=== PATIENT | female | born 1960 | race Caucasian/White ===

== ENCOUNTER 2016-05-23 18:05 | Emergency (ER) | payer MEDICARE | END 2016-05-23 20:56 | disposition home or self-care (01) | DX: M79.662 Pain in left lower leg (principal); M79.661 Pain in right lower leg; I10 Essential (primary) hypertension; E11.9 Type 2 diabetes mellitus without complications; Z79.84 Long term (current) use of oral hypoglycemic drugs; E03.9 Hypothyroidism, unspecified; Z79.82 Long term (current) use of aspirin ==

== ENCOUNTER 2018-03-02 13:56 | Emergency (ER) | payer MEDICARE ==
[2018-03-02 15:28] LABS: BASOPHILS # (AUTO) 0.1 10^3/uL (0.0-0.1); BASOPHILS % (AUTO) 1.4 %; EOSINOPHILS # (AUTO) 0.3 10^3/uL (0.0-0.7); EOSINOPHILS % (AUTO) 4.2 %; HGB - HEMOGLOBIN 14.8 g/dL (12.0-16.0); LYMPHOCYTES # (AUTO) 3.2 10^3/uL (1.5-3.5); LYMPHOCYTES % (AUTO) 41.1 %; MEAN CORPUSCULAR HEMOGLOBIN 31.2 pg (27.0-31.0); MEAN CORPUSCULAR HGB CONC 34.7 g/dL (32.0-36.0); MEAN CORPUSCULAR VOLUME 90.1 fL (81.0-99.0); MEAN PLATELET VOLUME 8.3 fL (7.9-10.8); MONOCYTES # (AUTO) 0.8 10^3/uL (0.0-1.0); MONOCYTES % (AUTO) 10.1 %; NEUTROPHILS # (AUTO) 3.3 10^3/uL (1.5-6.6); NEUTROPHILS % (AUTO) 43.2 %; PLT - PLATELET COUNT 178 10^3/uL (130-450); RED BLOOD COUNT 4.73 10^6/uL (4.20-5.40); RED CELL DISTRIBUTION WIDTH 13.5 % (12.0-15.0); WHITE BLOOD COUNT 7.7 x10^3/uL (4.8-10.8)
[2018-03-02 15:33] LABS: INR 1.1 (0.8-1.2); PT - PROTHROMBIN TIME 12.5 secs (9.9-12.6)
[2018-03-02 15:42] LABS: ALBUMIN 3.9 g/dL (3.2-5.5); BILIRUBIN,TOTAL 0.5 mg/dL (0.2-1.0); CALCIUM 9.5 mg/dL (8.5-10.3); CREATININE 0.9 mg/dL (0.4-1.0); TOTAL PROTEIN 7.9 g/dL (6.7-8.2)
--- NOTE | 2018-03-02 16:59 | ED Physician Documentation ---
PD HPI LOWER EXT INJURY - Stated complaint Stated Complaint: L LEG PX - Chief complaint Chief Complaint: Ext Problem - History obtained from History obtained from: Patient - History of Present Illness PD HPI LOW EXT INJURY LOCATION: Left (57-year-old woman with factor V Leiden history of DVT x1 in the right leg in 2011 was taken off of warfarin a few months ago because of tinnitus. Over the last few days without specific injury or travel she is developed left leg pain from the groin down behind the knee. She declines pain medication. No chest pain or trouble breathing.) Review of Systems Ten Systems: 10 systems reviewed and negative Constitutional: denies: Fever, Chills Cardiac: denies: Chest pain / pressure, Palpitations Respiratory: denies: Dyspnea, Cough PD PAST MEDICAL HISTORY - Past Medical History Cardiovascular: Hypertension, High cholesterol Endocrine/Autoimmune: Type 2 diabetes, HyPOthyroidism HEENT: Chronic hearing loss - Present Medications Home Medications: Ambulatory Orders Medication Instructions Recorded Confirmed Acetaminophen/Cod 300/30 [Tylenol 1 each PO Q4-6H PRN #15 tablet 12/02/15 #3] Aspirin 81 mg PO 12/02/15 12/02/15 Atorvastatin [Lipitor] 0 mg 12/02/15 Levothyroxine [Synthroid] 125 mcg PO QDAC 12/02/15 12/02/15 Lisinopril 10 mg PO 12/02/15 Omeprazole [PriLOSEC] 20 mg PO DAILY 12/02/15 12/02/15 metFORMIN [Glucophage] 1,000 mg PO BIDWM 12/02/15 12/02/15 Rivaroxaban [Xarelto] 15 mg PO BID #42 tablet 03/02/18 Rivaroxaban [Xarelto] 20 mg PO DAILY #30 tablet 03/02/18 - Allergies Allergies/Adverse Reactions: Allergies Allergy/AdvReac Type Severity Reaction Status Date / Time "All pain pills" AdvReac Emesis Uncoded 03/02/18 14:21 - Social History Does the pt smoke?: No Smoking Status: Never smoker PD ED PE NORMAL - Vitals Vital signs reviewed: Yes - General General: Alert and oriented X 3, No acute distress - Extremities Extremities: Other (The legs are symmetric and not discolored but she is quite tender in the left calf and distal hamstring area. Good range of motion.) - Neuro Neuro: Alert and oriented X 3, Normal speech Results - Vitals Vitals: Vital Signs - 24 hr 03/02/18 14:12 Temperature 36.9 C Heart Rate 79 Respiratory 16 Rate Blood Pressure 115/56 L O2 Saturation 94 Oxygen O2 Source Room air - Labs Labs: Laboratory Tests 03/02/18 03/02/18 03/02/18 15:20 15:20 15:20 WBC 7.7 RBC 4.73 Hgb 14.8 Hct 42.6 MCV 90.1 MCH 31.2 H MCHC 34.7 RDW 13.5 Plt Count 178 MPV 8.3 Neut # (Auto) 3.3 Lymph # (Auto) 3.2 [place] # (Auto) 0.8 Eos # (Auto) 0.3 Baso # (Auto) 0.1 Absolute Nucleated RBC 0.01 Nucleated RBC % 0.1 PT 12.5 INR 1.1 Sodium 138 Potassium 4.0 Chloride 104 Carbon Dioxide 26 Anion Gap 8.0 BUN 13 Creatinine 0.9 Estimated GFR (MDRD) 65 L Glucose 144 H Calcium 9.5 Total Bilirubin 0.5 AST 45 H ALT 56 Alkaline Phosphatase 128 H Total Protein 7.9 Albumin 3.9 Globulin 4.0 Albumin/Globulin Ratio 1.0 Lipase 50 - Rads (name of study) LLE duplex Radiology: Prelim report reviewed (extensive DVT) PD MEDICAL DECISION MAKING - ED course ED course: She had intolerable side effects previously with warfarin so though her insurance website was queried and Xarelto is covered. Departure - Departure Disposition: 01 Home, Self Care Clinical Impression: Deep vein thrombosis Qualifiers: DVT location: lower extremity Affected thrombotic vein of extremity: femoral Chronicity: acute Laterality: left Qualified Code(s): I82.412 - Acute embolism and thrombosis of left femoral vein Condition: Good Record reviewed to determine appropriate education?: Yes Instructions: DVT Dc Prescriptions: Rivaroxaban [Xarelto] 15 mg PO BID #42 tablet Rivaroxaban [Xarelto] 20 mg PO DAILY #30 tablet Comments: I checked on your insurance website, Xarelto should be covered. For the first 3 weeks you take a lower dose but twice a day, after that you take a higher dose but only once a day. Return for new or worsening symptoms. Follow-up with your doctor within the week.
--- NOTE | 2018-03-02 18:09 | Ultrasound Report ---
Reason: left leg swelling Procedure Date: 03/02/2018 Accession Number: [id number] / [id number] Procedure: US - Duplex Ext Veins Left CPT Code: FULL RESULT: EXAM: LEFT LOWER EXTREMITY VENOUS ULTRASOUND EXAM DATE: 03/02/2018 05:56 PM. CLINICAL HISTORY: Left leg swelling. COMPARISON: DUPLEX EXT VEINS BILATERAL 05/23/2016 7:03 PM. TECHNIQUE: Real-time sonographic vascular imaging was performed by the wireless engineer through the lower extremity utilizing both color-flow and Doppler spectral analysis. Multiple veterans service representative static images were saved for review. FINDINGS: Common Femoral Vein (CFV): Nonocclusive distal left common femoral vein thrombus. CFV-GSV Junction: Normal. Profunda Femoral Vein (PFV): Normal. Femoral Vein (FV) Prox: Occlusive thrombus. Femoral Vein (FV) Mid: Occlusive thrombus. Femoral Vein (FV) Dist: Occlusive thrombus. Popliteal Vein: Occlusive thrombus. Posterior Tibial Veins: Occlusive thrombus in the proximal posterior tibial vein. Remaining left posterior tibial vein is patent. Peroneal Veins: Occlusive thrombus. Contralateral Side CFV: Normal. Other: None. IMPRESSION: Nonocclusive distal left common femoral vein thrombus. Occlusive thrombus from the proximal left femoral to the popliteal and into the proximal left posterior tibial vein. Occlusive thrombus in the left peroneal vein. MJ The above findings were discussed with Nate Rebolledo by Dr. Daija Vasquez at 18:08 hrs on 03/02/18.
[2018-03-02] MEDS ORDERED: RIVAROXABAN 15 MG TABLET PO STA (18:10)
[2018-03-02 18:18] VITALS: BP 126/60
== END 2018-03-02 18:33 | disposition home or self-care (01) ==
LOC: ED 13:56
DX: I82.412 Acute embolism and thrombosis of left femoral vein (principal); I10 Essential (primary) hypertension; E11.9 Type 2 diabetes mellitus without complications; Z79.82 Long term (current) use of aspirin; Z79.84 Long term (current) use of oral hypoglycemic drugs
CPT/HCPCS: 36415; 80053; 83690; 85025; 85610; 93971; 99283; A9270

== ENCOUNTER 2018-04-26 15:38 | Emergency (ER) | payer OTHER, MEDICARE ==
--- NOTE | 2018-04-26 16:07 | ED Physician Documentation ---
PD HPI UPPER EXT INJURY - Stated complaint Stated Complaint: HURT HER RIGHT HAND AT WORK - Chief complaint Chief Complaint: Ext Problem - History obtained from History obtained from: Patient - History of Present Illness Location: Right (She has history of a tendinitis in the right wrist status post surgery and also carpal tunnel release in that hand. A few days ago at work she was reaching for a doorknob to turn it and somebody was coming out from the inside and the doorknob was kind of pushed into her hand as she was turning and she now has severe pain along the radial side of the right wrist. She declines pain medication on initial evaluation.) Review of Systems Constitutional: reports: Reviewed and negative Cardiac: reports: Reviewed and negative Respiratory: reports: Reviewed and negative PD PAST MEDICAL HISTORY - Past Medical History Cardiovascular: Hypertension, High cholesterol Endocrine/Autoimmune: Type 2 diabetes, HyPOthyroidism HEENT: Chronic hearing loss - Past Surgical History Past Surgical History: Yes - Present Medications Home Medications: Ambulatory Orders Medication Instructions Recorded Confirmed Acetaminophen/Cod 300/30 [Tylenol 1 each PO Q4-6H PRN #15 tablet 12/02/15 #3] Aspirin 81 mg PO 12/02/15 12/02/15 Atorvastatin [Lipitor] 0 mg 12/02/15 Levothyroxine [Synthroid] 125 mcg PO QDAC 12/02/15 12/02/15 Lisinopril 10 mg PO 12/02/15 Omeprazole [PriLOSEC] 20 mg PO DAILY 12/02/15 12/02/15 metFORMIN [Glucophage] 1,000 mg PO BIDWM 12/02/15 12/02/15 Rivaroxaban [Xarelto] 15 mg PO BID #42 tablet 03/02/18 Rivaroxaban [Xarelto] 20 mg PO DAILY #30 tablet 03/02/18 traMADol [Ultram] 50 mg PO Q4-6H PRN #15 tablet 04/26/18 - Allergies Allergies/Adverse Reactions: Allergies Allergy/AdvReac Type Severity Reaction Status Date / Time "All pain pills" AdvReac Emesis Uncoded 03/02/18 14:21 - Social History Does the pt smoke?: No Smoking Status: Never smoker Does the pt drink ETOH?: Yes PD ED PE NORMAL - Vitals Vital signs reviewed: Yes - General General: Alert and oriented X 3, No acute distress - Extremities Extremities: Other (There is really no bony tenderness of the wrist, she is tender on the radial side of the wrist diffusely and has a positive de Quer vain's test but it seems tight.) - Neuro Neuro: Alert and oriented X 3, Normal speech Results - Vitals Vitals: Vital Signs - 24 hr 04/26/18 15:48 Temperature 36.5 C Heart Rate 82 Respiratory 14 Rate Blood Pressure 119/70 O2 Saturation 97 Oxygen O2 Source Room air - Rads (name of study) 4v R wrist Radiology: EMP read contemporaneously (SHAHLA, ALVARADO) Departure - Departure Disposition: Home, Self Care Clinical Impression: Right wrist sprain Qualifiers: Encounter type: initial encounter Qualified Code(s): S63.501A - Unspecified sprain of right wrist, initial encounter Condition: Good Record reviewed to determine appropriate education?: Yes Instructions: ED Sprain Wrist Prescriptions: traMADol [Ultram] 50 mg PO Q4-6H PRN #15 tablet PRN Reason: Pain Comments: Follow-up with your hand surgeon if not better in a week. Return for new or wor sening symptoms.
[2018-04-26 16:15] VITALS: BP 119/70
--- NOTE | 2018-04-26 16:57 | XRAY Report ---
Reason: wrist injury Procedure Date: 04/26/2018 Accession Number: [id number] / [id number] Procedure: XR - Wrist 4 View RT CPT Code: FULL RESULT: EXAM: RIGHT WRIST RADIOGRAPHY EXAM DATE: 04/26/2018 04:33 PM. CLINICAL HISTORY: Wrist injury. COMPARISON: HAND 3 VIEW BILAT 12/02/2015 4:05 PM. TECHNIQUE: 4 views. FINDINGS: Bones: Normal. No fractures or bone lesions. Joints: Mild joint space narrowing at the radius scaphoid articulation. Small osteophytes at the first MCP joint. No erosive change. Soft Tissues: Unremarkable. IMPRESSION: 1. Mild degenerative changes at the radius scaphoid and first MCP joints. RADIA
== END 2018-04-26 17:23 | disposition home or self-care (01) ==
LOC: ED 15:38
DX: S63.501A Unspecified sprain of right wrist, initial encounter (principal); W22.8XXA Striking against or struck by other objects, initial encounter; Y93.89 Activity, other specified; Y99.0 Civilian activity done for income or pay; I10 Essential (primary) hypertension; E11.9 Type 2 diabetes mellitus without complications; Z79.84 Long term (current) use of oral hypoglycemic drugs
CPT/HCPCS: 1040M; 73110; 99283

== ENCOUNTER 2018-12-15 14:20 | Outpatient (CLI) | payer MEDICARE | END 2018-12-15 14:21 | disposition home or self-care (01) | LOC: LAB.S 14:20 | PROVIDERS: ATTEND Emergency Medicine | DX: Z86.718 Personal history of other venous thrombosis and embolism (principal) | CPT/HCPCS: 85610 ==

== ENCOUNTER 2019-01-22 13:48 | Outpatient (CLI) | payer MEDICARE | END 2019-01-22 13:49 | disposition home or self-care (01) | LOC: LAB.S 13:48 | PROVIDERS: ATTEND Emergency Medicine | DX: Z09 Encounter for follow-up examination after completed treatment for conditions other than malignant neoplasm (principal); Z86.718 Personal history of other venous thrombosis and embolism | CPT/HCPCS: 85610 ==

== ENCOUNTER 2019-02-05 14:06 | Outpatient (CLI) | payer MEDICARE | END 2019-02-05 14:07 | disposition home or self-care (01) | LOC: LAB.S 14:06 | PROVIDERS: ATTEND Emergency Medicine | DX: Z09 Encounter for follow-up examination after completed treatment for conditions other than malignant neoplasm (principal); Z86.718 Personal history of other venous thrombosis and embolism | CPT/HCPCS: 85610 ==

== ENCOUNTER 2019-03-24 15:35 | Outpatient (CLI) | payer MEDICARE | END 2019-03-24 15:36 | disposition home or self-care (01) | LOC: LAB.S 15:35 | PROVIDERS: ATTEND Emergency Medicine | DX: Z86.718 Personal history of other venous thrombosis and embolism (principal) | CPT/HCPCS: 85610 ==

== ENCOUNTER 2019-05-07 15:07 | Outpatient (CLI) | payer MEDICARE | END 2019-05-07 15:08 | disposition home or self-care (01) | LOC: LAB.S 15:07 | PROVIDERS: ATTEND Emergency Medicine | DX: Z86.718 Personal history of other venous thrombosis and embolism (principal) | CPT/HCPCS: 85610 ==

== ENCOUNTER 2020-03-05 10:30 | Inpatient (IN) | payer MEDICARE, OTHER ==
[2020-03-05] MEDS ORDERED: SODIUM CHLORIDE 0.9% 1,000 ML IV STA (11:55)
[2020-03-05] MEDS ORDERED: IOVERSOL 320 100 ML VIAL IVP ONE ×2 (12:18→16:25)
[2020-03-05 12:24] LABS: BILIRUBIN,URINE NEGATIVE (NEGATIVE); GLUCOSE, URINE (UA) NEGATIVE (NEGATIVE); KETONES,URINE (UA) NEGATIVE (NEGATIVE); LEUKOCYTE ESTERASE, URINE NEGATIVE (NEGATIVE); NITRITE,URINE NEGATIVE (NEGATIVE); OCCULT BLOOD,URINE TRACE-LYSE (NEGATIVE); PROTEIN,URINE NEGATIVE (NEGATIVE); UROBILINOGEN,URINE 0.2 (NORMAL) E.U./dL (NORMAL)
[2020-03-05 12:32] LABS: CLARITY,URINE CLEAR (CLEAR)
[2020-03-05 12:44] LABS: BASOPHILS % (AUTO) 0.2 %; HGB - HEMOGLOBIN 14.5 g/dL (12.0-16.0); LYMPHOCYTES % (AUTO) 21.6 %; MEAN CORPUSCULAR HEMOGLOBIN 30.5 pg (27.0-31.0); MEAN CORPUSCULAR HGB CONC 34.4 g/dL (32.0-36.0); MEAN CORPUSCULAR VOLUME 88.6 fL (81.0-99.0); MEAN PLATELET VOLUME 9.8 fL (7.9-10.8); NEUTROPHILS % (AUTO) 64.4 %; PLT - PLATELET COUNT 208 10^3/uL (130-450); RED BLOOD COUNT 4.75 10^6/uL (4.20-5.40); WHITE BLOOD COUNT 16.9 x10^3/uL (4.8-10.8)
[2020-03-05 12:53] LABS: ABNORMAL LYMPHS % (MANUAL) 0 %; ALBUMIN 4.3 g/dL (3.2-5.5); ALBUMIN/GLOBULIN RATIO 1.2 (1.0-2.2); BILIRUBIN,TOTAL 0.6 mg/dL (0.2-1.0); CALCIUM 9.4 mg/dL (8.5-10.3); CREATININE 0.9 mg/dL (0.4-1.0); TOTAL PROTEIN 7.9 g/dL (6.7-8.2)
[2020-03-05 13:14] LABS: BAND NEUTROPHILS % (MANUAL) 16 %; BASOPHILS # (MANUAL) 0.2 10^3/uL (0-0.1); BASOPHILS % (MANUAL) 1 %; LYMPHOCYTES # (MANUAL) 3.5 10^3/uL (1.5-3.5); LYMPHOCYTES % (MANUAL) 21 %; MONOCYTES # (MANUAL) 2.5 10^3/uL (0.0-1.0); MYELOCYTES % (MANUAL) 1 %; PLATELET MORPHOLOGY NORMAL APPEARANCE (NORMAL); RBC MORPHOLOGY (MULTIPLE) NORMAL APPEARANCE (NORMAL)
[2020-03-05 13:15] LABS: DIFFERENTIAL COMMENT MANUAL DIFFERENTIAL; PLATELET ESTIMATE, MANUAL NORMAL (130-450,000) (NORMAL)
--- NOTE | 2020-03-05 13:37 | CT Report ---
PROCEDURE: Abdomen/Pelvis W INDICATIONS: Abdominal pain, acute, nonlocalized CONTRAST: IV CONTRAST: Optiray 320 ml: 100 PO CONTRAST: *NO PO CONTRAST TECHNIQUE: After the administration of nonionic IV contrast, 5 mm thick sections acquired from the diaphragms to the symphysis. 5 mm thick coronal and sagittal reformats were acquired. For radiation dose reducti on, the following was used: automated exposure control, adjustment of mA and/or kV according to thomas ent size. COMPARISON: None. FINDINGS: Image quality: Excellent. ABDOMEN: Lung bases: Lung bases are clear. Heart size is normal. Solid organs: A prominent, fatty liver is seen. The spleen demonstrates normal size and no focal lesi ons. Gallbladder wall does not appear thickened. Biliary system is non dilated. Pancreas enhances normally. No adrenal nodules. Kidneys demonstrate normal size and enhancement, without hydronephro sis. Peritoneum and bowel: Generalized hyper enhancement can be seen of the colon, with liquid stool seen throughout the colon. Minimal surrounding inflammatory changes are seen. No dilated loops of small sneha wel are seen. No free air or significant free fluid can be seen. Nodes and vessels: No retroperitoneal or mesenteric adenopathy by size criteria. Aorta and inferior vena cava are normal in size. The SMA is unremarkable. The portal vein is patent. Miscellaneous: No ventral hernias. PELVIS: Genitourinary: Bladder wall thickness is normal. This patient is status post hysterectomy. No adnex al masses can be seen. Miscellaneous: No inguinal hernias or adenopathy. Bones: No suspicious bony lesions. No vertebral body compression fractures. Mild dextroconvex scol iotic curvature is seen. Focal L4-L5 degenerative change is seen. Milder degenerative changes are see n elsewhere. IMPRESSION: Diffuse colitis. Please correlate with infectious and inflammatory causes. No findings of perforation or abscess can be seen. Incidental note is made of: Fatty liver infiltration Hysterectomy Mild dextroconvex scoliotic curvature Focal L4-L5 degenerative change Reviewed by: Vamsi Werner MD on 03/05/2020 12:36 PM [place] Approved by: Vamsi Werner MD on 03/05/2020 12:36 PM [facility] Station ID: [id number]
[2020-03-05] MEDS ORDERED: ACETAMINOPHEN 325 MG TABLET PO STA (13:51)
[2020-03-05] MEDS ORDERED: metroNIDAZOLE 500 MG/100 ML 500 MG/100 ML BAG IV STA (14:46)
[2020-03-05] MEDS ORDERED: CIPROFLOXACIN 400 MG/200 ML 400 MG/200 ML BAG IV ONE (15:00)
--- NOTE | 2020-03-05 15:00 | ED Physician Documentation ---
History of Present Illness - Stated complaint Stated Complaint: DEHYDRATED - Chief complaint Chief Complaint: General - Additonal information Additional information: 59-year-old woman with past medical history of factor 5 leiden, high blood pressure diabetes hyperlipidemia stage III breast cancer presents with dehydration and diarrhea since getting chemotherapy 2 Fridays ago, progressively worsening over past week associated with weakness and nausea intermittently. Denies fevers, chest pain shortness of breath or vomiting. Denies blood in stool or vomitus. Denies urinary symptoms. Review of Systems Ten Systems: 10 systems reviewed and negative Constitutional: denies: Fever, Chills Ears: reports: Loss of hearing (patient is deaf - ASL) PD PAST MEDICAL HISTORY - Past Medical History Past Medical History: Yes Cardiovascular: Hypertension, High cholesterol Respiratory: None Neuro: None Endocrine/Autoimmune: Type 2 diabetes, HyPOthyroidism GI: None PROTECTIVE SIGNAL REPAIRER: None : None HEENT: Chronic hearing loss Psych: None Musculoskeletal: None Derm: None - Past Surgical History Past Surgical History: Yes - Present Medications Home Medications: Ambulatory Orders Medication Instructions Recorded Confirmed Acetaminophen/Cod 300/30 [Tylenol 1 each PO Q4-6H PRN #15 tablet 12/02/15 #3] Aspirin 81 mg PO 12/02/15 12/02/15 Atorvastatin [Lipitor] 0 mg 12/02/15 Levothyroxine [Synthroid] 125 mcg PO QDAC 12/02/15 12/02/15 Omeprazole [PriLOSEC] 20 mg PO DAILY 12/02/15 12/02/15 lisinopriL [Lisinopril] 10 mg PO 12/02/15 metFORMIN [Glucophage] 1,000 mg PO BIDWM 12/02/15 12/02/15 Rivaroxaban [Xarelto] 15 mg PO BID #42 tablet 03/02/18 Rivaroxaban [Xarelto] 20 mg PO DAILY #30 tablet 03/02/18 traMADol [Ultram] 50 mg PO Q4-6H PRN #15 tablet 04/26/18 - Allergies Allergies/Adverse Reactions: Allergies Allergy/AdvReac Type Severity Reaction Status Date / Time "All pain pills" AdvReac Emesis Uncoded 03/02/18 14:21 - Social History Does the pt smoke?: No Smoking Status: Never smoker Does the pt drink ETOH?: Yes Does the pt have substance abuse?: No - Immunizations Immunizations are current?: Yes - POLST Patient has POLST: No PD ED PE NORMAL - General General: Alert and oriented X 3 - HEENT HEENT: Atraumatic - Neck Neck: Supple, no meningeal sign - Cardiac Cardiac: RRR - Respiratory Respiratory: No respiratory distress - Abdomen Abdomen: Other (TTP in BL UQ) - Back Back: No CVA TTP - Derm Derm: Normal color, Warm and dry - Extremities Extremities: No deformity - Neuro Neuro: Alert and oriented X 3 - Psych Psych: Normal mood, Normal affect Results - Vitals Vitals: Vital Signs - 24 hr 03/05/20 03/05/20 11:27 11:57 Temperature 36.5 C 36.9 C Heart Rate 68 66 Respiratory 16 16 Rate Blood Pressure 95/40 L 104/87 H O2 Saturation 98 100 Oxygen O2 Source Room air - Labs Labs: Laboratory Tests 03/05/20 03/05/20 03/05/20 12:00 12:33 12:33 WBC 16.9 H RBC 4.75 Hgb 14.5 Hct 42.1 MCV 88.6 MCH 30.5 MCHC 34.4 RDW 13.0 Plt Count 208 MPV 9.8 Neut # (Auto) Not Reportable Lymph # (Auto) Not Reportable [place] # (Auto) Not Reportable Eos # (Auto) Not Reportable Baso # (Auto) Not Reportable Absolute Nucleated RBC Not Reportable Total Counted 100 Band Neuts % (Manual) 16 H Abnorm Lymph % (Manual) 0 Myelocytes % 1 H Nucleated RBC % Not Reportable Neutrophils # (Manual) 10.5 H Lymphocytes # (Manual) 3.5 Monocytes # (Manual) 2.5 H Eosinophils # (Manual) 0.0 Basophils # (Manual) 0.2 H Differential Comment MANUAL DIFFERENTIAL WBC Morphology 1+ REACTIVE LYMPHS Platelet Estimate NORMAL (130-450,000) Platelet Morphology NORMAL APPEARANCE RBC Morph Micro Appear NORMAL APPEARANCE Sodium 128 L Potassium 3.7 Chloride 96 L Carbon Dioxide 21 Anion Gap 11.0 BUN 18 Creatinine 0.9 Estimated GFR (MDRD) 65 L Glucose 125 H Calcium 9.4 Total Bilirubin 0.6 AST 60 H ALT 39 Alkaline Phosphatase 117 Total Protein 7.9 Albumin 4.3 Globulin 3.6 Albumin/Globulin Ratio 1.2 Lipase 86 H Urine Color YELLOW Urine Clarity CLEAR Urine pH 6.0 Ur Specific [place] 1.010 Urine Protein NEGATIVE Urine Glucose (UA) NEGATIVE Urine Ketones NEGATIVE Urine Occult Blood TRACE-LYSE Urine Nitrite NEGATIVE Urine Bilirubin NEGATIVE Urine Urobilinogen 0.2 (NORMAL) Ur Leukocyte Esterase NEGATIVE Ur Microscopic Review NOT INDICATED Urine Culture Comments NOT INDICATED PD MEDICAL DECISION MAKING - ED course ED course: 59-year-old woman with history of stage III breast cancer, last chemo 2 weeks ago presents with worsening dehydration, diarrhea and weakness since that time. Found to be borderline hypotensive, improving with ivf, and to have colitis on CT which we treated. Discussed with hospitalist Dr. Katharina Zuñiga to admit for IV antibiotics. Culture sent and pending. Departure - Departure Clinical Impression: Colitis, Diarrhea, Dehydration Condition: Stable
[2020-03-05] MEDS ORDERED: SODIUM CHLORIDE FLUSH 0.9% 10 ML SYRINGE IVP PRN ×3 (15:40→19:41)
[2020-03-05] MEDS ORDERED: ACETAMINOPHEN 325 MG TABLET PO PRN (15:40)
[2020-03-05] MEDS ORDERED: ONDANSETRON 4 MG/2 ML VIAL IVP PRN ×2 (15:40→16:51)
[2020-03-05] MEDS ORDERED: D5NS W/20 MEQ KCL 1,000 ML IV SCH (16:00)
[2020-03-05] MEDS ORDERED: metroNIDAZOLE 500 MG/100 ML 500 MG/100 ML BAG IV SCH ×3 (16:00→19:00)
[2020-03-05] MEDS ORDERED: SODIUM CHLORIDE FLUSH 0.9% 10 ML SYRINGE IVP SCH (17:00)
[2020-03-05] MEDS ORDERED: LIDOCAINE JELLY 2% 6 ML JEL.PF.APP TOP ONE (18:35)
[2020-03-05] MEDS ORDERED: SODIUM CHLORIDE 0.9% 500 ML IV PRN (19:41)
[2020-03-05] MEDS: D5NS W/20 MEQ KCL 1,000 ML IV SCH (20:05)
[2020-03-05] MEDS: SODIUM CHLORIDE FLUSH 0.9% 10 ML SYRINGE IVP SCH (20:06)
--- NOTE | 2020-03-05 20:48 | HISTORY & PHYSICAL EXAMINATION ---
Chief Complaint - Chief Complaint Chief Complaint: nausea, diarrhea, hypotension History of Present Illness - Admitted From [facility] ED - History Obtained From Records Reviewed: Yes History obtained from: Patient - History of Present Illness HPI Comment/Other: Patient is a 59-year-old female with current diagnosis of stage III breast cancer who sees Dr. Zabala (oncologist) at [place] and started chemotherapy 2 weeks ago. She saw her primary care physician on Friday and had routine labs done yesterday which showed an elevated white blood cell count. Consequently she was advised to go to the hospital for further evaluation. However she reports poor appetite over the past week, nausea and diarrhea every hour. She denies chest pain, dyspnea. She reports abdominal pain which initially started on the right side but radiates centrally and downward. It seems to worsen when she is about to have a bowel movement. She denied blood in her stool. In the ED she was also found to have a Systolic blood pressure of 95. Consequently she was presented for admission for further treatment. Her other past medical history includes factor V Leiden, history of DVT for which she is on Coumadin which is currently being bridged with Lovenox. Her most recent INR was 2.3. Hypothyroidism, diabetes mellitus, hypertension, GERD. History - Past Medical History Cardiovascular: reports: Hypertension, High cholesterol Respiratory: reports: None Neuro: reports: None Endocrine/Autoimmune: reports: Type 2 diabetes, HyPOthyroidism GI: reports: None ENVIRONMENTAL ADVISOR: reports: None : reports: None HEENT: reports: Chronic hearing loss Psych: reports: None Musculoskeletal: reports: None Derm: reports: None MRSA Hx?: No - Past Surgical History Other past surgical history: Port placed February 21, 2020. Cyst removal from the roof of her mouth about 6 months ago. Cervical fusion in 1997. - Family & Social History Family History Comment/Other: Patient's father had diabetes mellitus. Significant history of factor V Leiden and Asthma on maternal side. Living arrangement: At home Living Situation: With spouse/s.o. Social History Notes: Patient lives at home with her significant other. She is a schoolteacher. She is normally independent of activities of daily living. She mainly uses sign language for communication because of deafness. She r eports at 30+ year pack per year history. She quit smoking about 25 years ago. She drinks 1 glass of wine daily with dinner. She denies any recreational drug use. - POLST Patient has POLST: No POLST Status: Full Code Meds/Allgy - Home Medications Home Medications: Ambulatory Orders Medication Instructions Recorded Confirmed Acetaminophen/Cod 300/30 [Tylenol 1 each PO Q4-6H PRN #15 tablet 12/02/15 #3] Aspirin 81 mg PO 12/02/15 12/02/15 Atorvastatin [Lipitor] 0 mg 12/02/15 Levothyroxine [Synthroid] 125 mcg PO QDAC 12/02/15 12/02/15 Omeprazole [PriLOSEC] 20 mg PO DAILY 12/02/15 12/02/15 lisinopriL [Lisinopril] 10 mg PO 12/02/15 metFORMIN [Glucophage] 1,000 mg PO BIDWM 12/02/15 12/02/15 Rivaroxaban [Xarelto] 15 mg PO BID #42 tablet 03/02/18 Rivaroxaban [Xarelto] 20 mg PO DAILY #30 tablet 03/02/18 traMADol [Ultram] 50 mg PO Q4-6H PRN #15 tablet 04/26/18 - Allergies Allergies/Adverse Reactions: Allergies Allergy/AdvReac Type Severity Reaction Status Date / Time "All pain pills" AdvReac Emesis Uncoded 03/02/18 14:21 Review of Systems - Constitutional Constitutional: reports: Fatigue, Weakness, Poor appetite. denies: Fever, Chills - Eyes Eyes: denies: Pain, Vision loss - Ears, Nose & Throat Ears, Nose & Throat: reports: Hearing loss - Cardiovascular Cariovascular: denies: Irregular heart rate, Palpitations, Chest pain, Edema, Lightheadedness, Syncope - Respiratory Respiratory: denies: Cough, Sputum production, Wheezing, SOB at rest - Gastrointestinal Gastrointestinal: reports: Abdominal pain, Diarrhea, Nausea, Reflux/heartburn, Bloating, Poor appetite. denies: Abdominal distention, Black stools, Bloody stools, Bile emesis, [place] blood emesis, Coffee grounds emesis - Genitourinary Genitourinary: denies: Dysuria, Frequency, Urgency, Hematuria - Musculoskeletal Musculoskeletal: reports: Other (muscle spasms) - Integumentary Integumentary: denies: Rash, Pruritis, Lesions - Neurological Neurological: reports: General weakness, Headache (back of head). denies: Focal weakness, Dizziness - Psychiatric Psychiatric: denies: Depression, Anxiety - Endocrine Endocrine: denies: Polyuria, Polydypsia - Hematologic/Lymphatic Hematologic/Lymphatic: reports: Bruising (due to lovenox shots). denies: Anemia Prior Level of Functionality: She is independent of activities of daily living Exam - Vital Signs Vital Signs: Vital Signs x48h Temp Pulse Resp BP Pulse Ox 03/05/20 19:00 36.9 C 62 18 103/42 L 98 03/05/20 17:00 36.9 C 64 18 116/41 L 100 - Physical Exam General Appearance: positive: Alert, Mild distress Eyes Bilateral: positive: PERRL, EOMI ENT: positive: Dry mucous membranes Neck: positive: No JVD, Trachea midline Respiratory: positive: Chest non-tender, No respiratory distress, Breath sounds nml. negative: Wheezes, Rales, Rhonchi Cardiovascular: positive: Regular rate & rhythm, No murmur Abdomen: positive: Tenderness (mild to moderate), Abnml bowel sounds (hyperresonant). negative: Guarding, Rebound Back: positive: Nml inspection Skin: positive: Color nml, No rash, Warm, Dry Extremities: positive: Non-tender, Full ROM, Nml appearance, No pedal edema Neurologic/Psychiatric: positive: Oriented x3, Sensation nml, Mood/affect nml Conclusion/Plan - Problem List (1) Colitis Conclusion/Plan: CT scan showed diffuse colitis. Etiology could be infectious versus inflammatory secondary to chemotherapy. Blood, stool cultures and C. difficile pending. Patient was started on Cipro and Flagyl. Will continue. Patient receiving IV hydration. Patient is on a clear liquid diet. Patient would need to follow-up with her oncologist Dr. Zabala at [place] to discuss any potential adjustment to her chemo regimen (2) Hypotension Conclusion/Plan: Likely secondary to dehydration from frequent diarrhea with due to colitis. Patient is on IV hydration. Patient's blood pressure has improved with IV hydration. (3) Breast cancer Conclusion/Plan: Patient's oncologist is Dr. Zabala at [place]. We will request records from [place] (4) Candidiasis of mouth Conclusion/Plan: Possibly related to patient's chemotherapy and diabetes. Magic mouthwash has been ordered every 4 hours as needed. (5) Factor V Leiden Conclusion/Plan: Patient is on Coumadin 5 mg p.o. daily. She was on a bridge with Lovenox recently because she had a port placed. She reported that her INR recently was 2.3. We will check INR in the morning and resume Coumadin accordingly. (6) Personal history of DVT (deep vein thrombosis) Conclusion/Plan: On Coumadin. We will check INR (7) Hypothyroidism Conclusion/Plan: Resume patient's Synthroid once verified. (8) Hyperlipidemia Conclusion/Plan: On atorvastatin 10 mg p.o. daily (9) Diabetes mellitus Conclusion/Plan: We will hold Metformin for now. If needed will order sliding scale insulin. Qualifiers: Diabetes mellitus type: type 2 (10) GERD (gastroesophageal reflux disease) Conclusion/Plan: On Protonix 40 mg p.o. daily - Lab Results Fish Bones: 03/05/20 12:33 03/05/20 12:33 Core Measures - Anticipated LOS I expect patient to be DC'd or transferred within 96 hours.: Yes - DVT/VTE - Prophylaxis VTE/DVT Device ordered at admit?: Yes VTE/DVT Prophylaxis med ordered at admit?: Yes
[2020-03-05] MEDS: metroNIDAZOLE 500 MG/100 ML 500 MG/100 ML BAG IV SCH (21:20)
[2020-03-05] MEDS: ACETAMINOPHEN 325 MG TABLET PO PRN (22:27)
[2020-03-06] MEDS: SODIUM CHLORIDE 0.65% NASAL SPRAY NAS PRN (00:40)
[2020-03-06] MEDS: SODIUM CHLORIDE FLUSH 0.9% 10 ML SYRINGE IVP SCH ×3 (00:41→21:06)
[2020-03-06] MEDS: ACETAMINOPHEN 325 MG TABLET PO PRN ×4 (02:55→21:08)
[2020-03-06] MEDS ORDERED: CIPROFLOXACIN 400 MG/200 ML 400 MG/200 ML BAG IV SCH (04:00)
[2020-03-06] MEDS: D5NS W/20 MEQ KCL 1,000 ML IV SCH ×3 (04:13→13:34)
[2020-03-06] MEDS: metroNIDAZOLE 500 MG/100 ML 500 MG/100 ML BAG IV SCH ×3 (05:04→22:32)
[2020-03-06] MEDS ORDERED: PANTOPRAZOLE 40 MG TABLET PO SCH (07:00)
[2020-03-06] MEDS: CIPROFLOXACIN 400 MG/200 ML 400 MG/200 ML BAG IV SCH ×2 (07:12→19:57)
[2020-03-06 07:46] LABS: BASOPHILS # (AUTO) 0.1 10^3/uL (0.0-0.1); BASOPHILS % (AUTO) 0.6 %; HGB - HEMOGLOBIN 12.9 g/dL (12.0-16.0); LYMPHOCYTES # (AUTO) 3.1 10^3/uL (1.5-3.5); MEAN CORPUSCULAR HEMOGLOBIN 31.2 pg (27.0-31.0); MEAN CORPUSCULAR HGB CONC 35.1 g/dL (32.0-36.0); MEAN CORPUSCULAR VOLUME 89.1 fL (81.0-99.0); MEAN PLATELET VOLUME 10.3 fL (7.9-10.8); MONOCYTES # (AUTO) 1.2 10^3/uL (0.0-1.0); MONOCYTES % (AUTO) 9.3 %; NEUTROPHILS # (AUTO) 7.8 10^3/uL (1.5-6.6); NEUTROPHILS % (AUTO) 60.7 %; PLT - PLATELET COUNT 161 10^3/uL (130-450); RED BLOOD COUNT 4.13 10^6/uL (4.20-5.40); RED CELL DISTRIBUTION WIDTH 13.1 % (12.0-15.0); WHITE BLOOD COUNT 12.9 x10^3/uL (4.8-10.8)
[2020-03-06 07:51] LABS: CALCIUM 8.5 mg/dL (8.5-10.3); CREATININE 0.7 mg/dL (0.4-1.0)
[2020-03-06 08:05] LABS: INR 5.9 (0.8-1.2)
[2020-03-06 08:07] LABS: RBC MORPHOLOGY (MULTIPLE) 1+ ANISOCYTOSIS (NORMAL)
[2020-03-06] MEDS: PANTOPRAZOLE 40 MG TABLET PO SCH (08:54)
[2020-03-06] MEDS: MAGIC MOUTHWASH 120 ML BOTTLE PO PRN ×2 (08:54→16:19)
--- NOTE | 2020-03-06 09:59 | PHARMACY PROGRESS NOTE ---
- Best Possible Medication History Admit Date and Time: 03/05/20 1656 Processed by: Pharmacy Medication History completed: Yes Patient Interview: Completed Secondary Source(s): Physician records, Pharmacy records, Insurance records (PATIENT UNABLE TO BE INTERVIEWED. MEDICATION RECONCILIATION DONE USING A MEDICATION LIST PROVIDED BY THE CAREGIVER) As the person ultimately responsible for medication therapy, providers are able to order a medication from an existing home medication list in [facility] via the "Reconcile Routine" prior to Confirmation of that medication by support services coordinator. Such practice is discouraged except when the physician, in their clinical judgment, deems that a medical need exists for a medication without regard to previous use.
[2020-03-06] MEDS ORDERED: PHYTONADIONE 10 MG/ML AMP IVP STA (15:09)
--- NOTE | 2020-03-06 15:12 | PROVIDER PROGRESS NOTE ---
Assessment/Plan - Problem List (1) Colitis Assessment/Plan: Records were received from her oncology visit dated 03/03/2020. She had already started diarrhea then which was considered grade 3 and was to be on Imodium. We will continue with easily digestible diet, IV fluids, Cipro and Flagyl and Imodium if C. difficile is negative (2) Hypokalemia due to excessive gastrointestinal loss of potassium Assessment/Plan: Place with IV potassium riders. Follow BMP daily (3) Hematochezia Assessment/Plan: Her stool was smeared with bright red blood. This is likely from the inflamed colon on top of having anticoagulation with an excessive INR. We will follow her hemoglobin/hematocrit every 12 hours, transfuse if under 7 or if under 8 with symptoms. Reverse her elevated INR with vitamin K. Continue to treat the colitis with antibiotics. Will obtain general surgery consult to follow along with us. (4) Elevated INR (international normalized ratio) due to prior anticoagulant medication ingestion Assessment/Plan: Cards were received from her oncologist visit on 03/03/2020. She is on long- term warfarin therapy due to factor V Leiden deficiency. The note states she requires more frequent INR checks because of the chemotherapy which will make INR erratic. Will treat with vitamin K because of the witnessed GI bleed. Follow INR daily, if she is on Coumadin. Currently this will be on hold because of the GI bleed. (5) Candidiasis of mouth Assessment/Plan: Records were received from her oncology visit on 03/03/2020 and she had documented oral candidiasis then. She was supposed to be on fluconazole 100 mg daily for 2 weeks. The fluconazole will also change her INR and potential for prolonged QT. Remain on telemetry. Obtain EKG for baseline QT interval and check the EKG tomorrow. Follow monitor INR daily when she is on Coumadin. (6) Breast cancer Assessment/Plan: As per history. This was her first go around with chemotherapy, 2 weeks ago. (7) Factor V Leiden Assessment/Plan: The record states she is on long-term warfarin management because of the factor V Leiden deficiency and is followed at an anticoagulation clinic. (8) Diabetes mellitus Qualifiers: Diabetes mellitus type: type 2 Assessment/Plan: The oncology visit note states they are aware her blood sugars will increase due to diet changes, diarrhea, fluid changes and stress. Will do sliding scale checks and insulin coverage (9) Personal history of DVT (deep vein thrombosis) Assessment/Plan: Related to the factor V Leiden deficiency, Coumadin plan is lifelong. (10) Hypothyroidism Assessment/Plan: We will check her TSH level and continue her home dose of thyroid replacement (11) Hyperlipidemia Assessment/Plan: Medicine will be on hold during the diarrhea (12) GERD (gastroesophageal reflux disease) Assessment/Plan: She is on prophylactic meds for PUD while here (13) Elevated lipase Assessment/Plan: Lipase was elevated at admission, another 1 has not been drawn and will be added to the labs. The patient wonders if she has pancreatitis. CT of the abdomen showed a completely normal pancreas. (14) Sepsis Assessment/Plan: She was hypotensive at admission, had an elevated lactic acid level hours after admission therefore it was probably higher at the time in the ER. Both of these have resolved. The source of infection appears to be colitis, which is getting treatment. - Current Meds Current Meds: Current Medications Generic Name Dose Route Start Last Admin Trade Name Freq PRN Reason Stop Dose Admin Acetaminophen 650 mg 03/05/20 16:51 03/06/20 14:44 Tylenol PO 650 mg Q4HR PRN Administration Pain or Fever > 38C (100.4F) Potassium Chloride/Dextrose/Sod Cl 1,000 mls @ 125 mls/hr 03/05/20 17:00 03/06/20 13:34 IV 125 mls/hr .Q8H CARLOZ Administration Ciprofloxacin 400 mg in 200 mls @ 200 mls/hr 03/06/20 07:00 03/06/20 08:12 Cipro 400 Mg/200 Ml IV Infused Q12H CARLOZ Infusion Metronidazole 500 mg in 100 mls @ 100 mls/hr 03/05/20 21:00 03/06/20 14:30 Flagyl 500 Mg/100 Ml IV Infused Q8H CARLOZ Infusion Multi-Ingredient Mouthwash/Gargle 30 ml 03/05/20 22:46 03/06/20 08:54 PO 30 ml Q4H PRN Administration Mouth Sore Pain Pantoprazole Sodium 40 mg 03/06/20 07:00 03/06/20 08:54 Protonix PO 40 mg QDAC CARLOZ Administration Sodium Chloride 10 ml 03/05/20 17:00 03/06/20 08:15 Normal Saline Flush 0.9% IVP Not Given 0100,0900,1700 CARLOZ Sodium Chloride 20 ml 03/05/20 19:41 03/06/20 07:14 Normal Saline Flush 0.9% IVP 20 ml PRN PRN Administration After Blood Draw Sodium Chloride 2 sprays 03/05/20 23:27 03/06/20 00:40 [place] SAMANTHA 2 sprays Q4HR PRN Administration Nasal Congestion - Lab Result Fish Bone Diagrams: 03/07/20 05:45 03/07/20 05:45 - EKG Results EKG Interpreted Independently: Yes EKG Comparison: No prior EKG EKG Findings: Normal sinus rhythm, rate 68, diffusely flat T waves, borderline prolonged QT C interval of 538 msec. - Additional Planning My Orders: My Active Orders 03/05/20 15:40 Activity Orders [RC] Q2HR IO [RC] IOSHIFT Initiate Bowel Care Protocol [RC] .protocol Initiate Line Care Protocol [RC] QSHIFT Initiate Personal Care Protoco [RC] .protocol Oxygen Therapy [RC] Routine Telemetry (24 Hour) [RC] Q4HR Vital Signs [RC] Q4HR Code Status [OTHERS] Routine Condition of Patient [OTHERS] Routine DVT Prophylaxis [OTHERS] Routine 03/05/20 16:51 Acetaminophen [Tylenol] 650 mg PO Q4HR PRN Ondansetron Inj [Zofran Inj] 4 mg IVP Q6HR PRN Sodium Chloride Flush 0.9% [Normal Saline Flush 0.9%] 10 ml IVP PRN PRN 03/05/20 17:00 D5ns W/20 Meq KCl 1,000 ml IV 125 mls/hr Sodium Chloride Flush 0.9% [Normal Saline Flush 0.9%] 10 ml IVP 0100,0900,1700 03/05/20 19:41 Heparin Flush 30 - 50 unit IVP PRN PRN Sodium Chloride 0.9% [Normal Saline 0.9%] 500 ml IV Q24H Sodium Chloride Flush 0.9% [Normal Saline Flush 0.9%] 20 ml IVP PRN PRN 03/05/20 21:00 metroNIDAZOLE 500 MG/100 ML [Flagyl 500 mg/100 ml] 500 mg in 100 ml IV Q8H 03/06/20 07:00 Ciprofloxacin 400 mg/200 ml [Cipro 400 mg/200 ml] 400 mg in 200 ml IV Q12H Pantoprazole [Protonix] 40 mg PO QDAC 03/06/20 15:09 Phytonadione Inj (Adult) [Vitamin K (Adult)] 10 mg IVP ONCE STA Subjective - Subjective Patient Reports: Feeling Better (Nominal pain rated 4/10, improved from 8/10 yesterday. Still has increased cramps and sudden urges for defecation.) Nursing Reports: Other (Bloody bowel movements noted, several times, started at about noon) Objective Vital Signs: Vital Signs - 24 hr 03/05/20 03/05/20 03/05/20 17:00 19:00 23:22 Temperature 36.9 C 36.9 C 36.4 C L Heart Rate Heart Rate [ 64 62 68 Brachial] Respiratory 18 18 18 Rate Blood Pressure 116/41 L 103/42 L 104/49 L [Left Brachial artery] Blood Pressure [Right Brachial artery] O2 Saturation 100 98 97 03/06/20 03/06/20 03/06/20 03:45 05:11 08:37 Temperature 36.3 C L 36.3 C L 97.7 C H Heart Rate 69 Heart Rate [ 69 72 Brachial] Respiratory 18 18 16 Rate Blood Pressure 112/48 L 119/53 L [Left Brachial artery] Blood Pressure [Right Brachial artery] O2 Saturation 100 100 100 03/06/20 11:41 Temperature 36.3 C L Heart Rate Heart Rate [ 71 Brachial] Respiratory 18 Rate Blood Pressure 109/40 L [Left Brachial artery] Blood Pressure 125/43 L [Right Brachial artery] O2 Saturation 98 Oxygen O2 Source Room air I&O (Last 24 Hrs): Intake and Output Totals x24h 03/05/20 03/05/20 03/06/20 00:59 23:59 23:59 Intake Total 3986.667 Output Total 1851 Balance 2135.667 General: Alert, Oriented x3 HEENT: Mucous membr. moist/pink, Other (Completely deaf) Neck: Supple, No JVD Neuro: Alert, Non Focal, Other (Completely deaf) Cardiovascular: Regular rate, No murmurs Respiratory: No respiratory distress Abdomen: Soft, Other (Moderately distended, tenderness to moderate palpation, no guarding or rebound, no bruits, decreased bowel sounds) Extremities: No edema - Results Results: Laboratory Results WBC 12.9 x10^3/uL (4.8-10.8) H 03/06/20 07:15 RBC 4.13 10^6/uL (4.20-5.40) L 03/06/20 07:15 Hgb 12.9 g/dL (12.0-16.0) 03/06/20 07:15 Hct 36.8 % (37.0-47.0) L 03/06/20 07:15 MCV 89.1 fL (81.0-99.0) 03/06/20 07:15 MCH 31.2 pg (27.0-31.0) H 03/06/20 07:15 MCHC 35.1 g/dL (32.0-36.0) 03/06/20 07:15 RDW 13.1 % (12.0-15.0) 03/06/20 07:15 Plt Count 161 10^3/uL (130-450) 03/06/20 07:15 MPV 10.3 fL (7.9-10.8) 03/06/20 07:15 Neut # (Auto) 7.8 10^3/uL (1.5-6.6) H 03/06/20 07:15 Lymph # (Auto) 3.1 10^3/uL (1.5-3.5) 03/06/20 07:15 [place] # (Auto) 1.2 10^3/uL (0.0-1.0) H 03/06/20 07:15 Eos # (Auto) 0.0 10^3/uL (0.0-0.7) 03/06/20 07:15 Baso # (Auto) 0.1 10^3/uL (0.0-0.1) 03/06/20 07:15 Absolute Nucleated RBC 0.00 x10^3/uL 03/06/20 07:15 Total Counted 100 03/05/20 12:33 Band Neuts % (Manual) 16 % (0-10) H 03/05/20 12:33 Abnorm Lymph % (Manual) 0 % 03/05/20 12:33 Myelocytes % 1 % (-0) H 03/05/20 12:33 Nucleated RBC % 0.0 /100WBC 03/06/20 07:15 Neutrophils # (Manual) 10.5 10^3/uL (1.5-6.6) H 03/05/20 12:33 Lymphocytes # (Manual) 3.5 10^3/uL (1.5-3.5) 03/05/20 12:33 Monocytes # (Manual) 2.5 10^3/uL (0.0-1.0) H 03/05/20 12:33 Eosinophils # (Manual) 0.0 10^3/uL (0-0.7) 03/05/20 12:33 Basophils # (Manual) 0.2 10^3/uL (0-0.1) H 03/05/20 12:33 Differential Comment MANUAL DIFFERENTIAL 03/05/20 12:33 Manual Slide Review Indicated 03/06/20 07:15 WBC Morphology 2+ VACUOLATION (NORMAL) 2+ TOXIC GRANULATION (NORMAL) 1+ REACTIVE LYMPHS (NORMAL) 03/05/20 12:33 WBC Morphology 2+ VACUOLATION (NORMAL) 2+ TOXIC GRANULATION (NORMAL) 1+ REACTIVE LYMPHS (NORMAL) 03/05/20 12:33 WBC Morphology 2+ VACUOLATION (NORMAL) 2+ TOXIC GRANULATION (NORMAL) 1+ REACTIVE LYMPHS (NORMAL) 03/05/20 12:33 Platelet Estimate NORMAL (130-450,000) (NORMAL) 03/05/20 12:33 Platelet Morphology NORMAL APPEARANCE (NORMAL) 03/05/20 12:33 RBC Morph Micro Appear 1+ ANISOCYTOSIS (NORMAL) 03/06/20 07:15 PT 59.0 secs (9.9-12.6) H 03/06/20 07:15 INR 5.9 (0.8-1.2) H* 03/06/20 07:15 Sodium 135 mmol/L (135-145) 03/06/20 07:15 Potassium 3.2 mmol/L (3.5-5.0) L 03/06/20 07:15 Chloride 106 mmol/L (101-111) 03/06/20 07:15 Carbon Dioxide 18 mmol/L (21-32) L 03/06/20 07:15 Anion Gap 11.0 (6-13) 03/06/20 07:15 BUN 7 mg/dL (6-20) 03/06/20 07:15 Creatinine 0.7 mg/dL (0.4-1.0) 03/06/20 07:15 Estimated GFR (MDRD) 86 (>89) L 03/06/20 07:15 Glucose 148 mg/dL (70-100) H 03/06/20 07:15 Lactic Acid 2.3 mmol/L (0.5-2.2) H 03/05/20 19:50 Calcium 8.5 mg/dL (8.5-10.3) 03/06/20 07:15 Total Bilirubin 0.6 mg/dL (0.2-1.0) 03/05/20 12:33 AST 60 IU/L (10-42) H 03/05/20 12:33 ALT 39 IU/L (10-60) 03/05/20 12:33 Alkaline Phosphatase 117 IU/L (42-121) 03/05/20 12:33 Total Protein 7.9 g/dL (6.7-8.2) 03/05/20 12:33 Albumin 4.3 g/dL (3.2-5.5) 03/05/20 12:33 Globulin 3.6 g/dL (2.1-4.2) 03/05/20 12:33 Albumin/Globulin Ratio 1.2 (1.0-2.2) 03/05/20 12:33 Lipase 86 U/L (22-51) H 03/05/20 12:33 Urine Color YELLOW 03/05/20 12:00 Urine Clarity CLEAR (CLEAR) 03/05/20 12:00 Urine pH 6.0 PH (5.0-7.5) 03/05/20 12:00 Ur Specific [place] 1.010 (1.002-1.030) 03/05/20 12:00 Urine Protein NEGATIVE mg/dL (NEGATIVE) 03/05/20 12:00 Urine Glucose (UA) NEGATIVE mg/dL (NEGATIVE) 03/05/20 12:00 Urine Ketones NEGATIVE mg/dL (NEGATIVE) 03/05/20 12:00 Urine Occult Blood TRACE-LYSE (NEGATIVE) 03/05/20 12:00 Urine Nitrite NEGATIVE (NEGATIVE) 03/05/20 12:00 Urine Bilirubin NEGATIVE (NEGATIVE) 03/05/20 12:00 Urine Urobilinogen 0.2 (NORMAL) E.U./dL (NORMAL) 03/05/20 12:00 Ur Leukocyte Esterase NEGATIVE (NEGATIVE) 03/05/20 12:00 Ur Microscopic Review NOT INDICATED 03/05/20 12:00 Urine Culture Comments NOT INDICATED 03/05/20 12:00 Stl C. diff Tox B Gene NEGATIVE (NEGATIVE) 03/05/20 12:10
[2020-03-06] MEDS: FLUCONAZOLE 100 MG TABLET PO SCH (17:06)
[2020-03-06] MEDS: POTASSIUM CHLOR 10 MEQ/100 ML 10 MEQ/100 ML BAG IV SCH ×2 (18:30→21:03)
[2020-03-07] MEDS: POTASSIUM CHLOR 10 MEQ/100 ML 10 MEQ/100 ML BAG IV SCH ×6 (00:05→11:46)
[2020-03-07] MEDS: SODIUM CHLORIDE FLUSH 0.9% 10 ML SYRINGE IVP SCH ×3 (00:10→16:28)
[2020-03-07] MEDS: ACETAMINOPHEN 325 MG TABLET PO PRN ×3 (01:08→23:51)
[2020-03-07] MEDS: D5NS W/20 MEQ KCL 1,000 ML IV SCH ×2 (01:50→12:43)
[2020-03-07] MEDS: metroNIDAZOLE 500 MG/100 ML 500 MG/100 ML BAG IV SCH ×3 (04:35→21:31)
[2020-03-07 06:18] LABS: BASOPHILS % (AUTO) 0.6 %; HGB - HEMOGLOBIN 11.8 g/dL (12.0-16.0); LYMPHOCYTES % (AUTO) 21.1 %; MEAN CORPUSCULAR HEMOGLOBIN 30.6 pg (27.0-31.0); MEAN CORPUSCULAR VOLUME 89.9 fL (81.0-99.0); MEAN PLATELET VOLUME 9.9 fL (7.9-10.8); MONOCYTES % (AUTO) 8.9 %; NEUTROPHILS % (AUTO) 64.1 %; PLT - PLATELET COUNT 138 10^3/uL (130-450); RED BLOOD COUNT 3.86 10^6/uL (4.20-5.40); RED CELL DISTRIBUTION WIDTH 13.5 % (12.0-15.0); WHITE BLOOD COUNT 10.7 x10^3/uL (4.8-10.8)
[2020-03-07 06:21] LABS: ABNORMAL LYMPHS % (MANUAL) 0 %; INR 1.8 (0.8-1.2)
[2020-03-07] MEDS: PANTOPRAZOLE 40 MG TABLET PO SCH (06:33)
[2020-03-07] MEDS: LEVOTHYROXINE 125 MCG TABLET PO SCH (06:33)
[2020-03-07] MEDS: CIPROFLOXACIN 400 MG/200 ML 400 MG/200 ML BAG IV SCH ×2 (06:34→18:32)
[2020-03-07 06:42] LABS: BUN - BLOOD UREA NITROGEN < 5 mg/dL (6-20); CARBON DIOXIDE - CO2 13 mmol/L (21-32); CREATININE 0.4 mg/dL (0.4-1.0); GLUCOSE 95 mg/dL (70-100); LIPASE 75 U/L (22-51); SODIUM 142 mmol/L (135-145)
[2020-03-07 06:46] LABS: CALCIUM 4.9 mg/dL (8.5-10.3); CHLORIDE 124 mmol/L (101-111)
[2020-03-07] MEDS ORDERED: CALCIUM GLUCONATE 2,000 MG in SODIUM CHLORIDE 0.9% 100ML 100 ML IV ONE (06:50)
[2020-03-07 07:16] LABS: BAND NEUTROPHILS % (MANUAL) 7 %; BASOPHILS # (MANUAL) 0.1 10^3/uL (0-0.1); BASOPHILS % (MANUAL) 1 %; DIFFERENTIAL COMMENT MANUAL DIFFERENTIAL; LYMPHOCYTES # (MANUAL) 2.1 10^3/uL (1.5-3.5); LYMPHOCYTES % (MANUAL) 9 %; MONOCYTES # (MANUAL) 0.9 10^3/uL (0.0-1.0); MYELOCYTES % (MANUAL) 1 %; RBC MORPHOLOGY (MULTIPLE) 1+ POLYCHROMASIA (NORMAL)
[2020-03-07] MEDS ORDERED: SODIUM CHLORIDE 0.9% 100ML 100 ML IV ONE (08:27)
[2020-03-07] MEDS: FLUCONAZOLE 100 MG TABLET PO SCH (10:08)
[2020-03-07] MEDS: MAGIC MOUTHWASH 120 ML BOTTLE PO PRN (11:13)
[2020-03-07] MEDS: LIDOCAINE PATCH 5% TOP PRN ×2 (16:07→21:49)
--- NOTE | 2020-03-07 16:18 | PROVIDER PROGRESS NOTE ---
Assessment/Plan - Problem List (1) Colitis Assessment/Plan: The diarrheal bowel movements have stopped. Continue with using Cipro Flagyl and bowel rest with only clear liquid diet. General surgery consult pending for today regarding any further recommendations. (2) Hypokalemia due to excessive gastrointestinal loss of potassium Assessment/Plan: Serum K was 3.2 yesterday, has dropped to 2.3 today. It is undoubtedly from her copious liquidy bowel movements. Replace with K riders. Follow serum potassium later today Follow BMP daily (3) Hypocalcemia Assessment/Plan: This may be hemodilutional or related to GI losses or underlying Ca-deficiency, now uncovered. Replace. Follow Ca daily. (4) Hematochezia Assessment/Plan: Resolved as of yesterday evening. CBC daily to check for hemoglobin drop. Remain off Coumadin today yet. (5) Elevated INR (international normalized ratio) due to prior anticoagulant medication ingestion Assessment/Plan: Her INR was 5 yesterday, she developed bloody bowel movements yesterday. Because of this Coumadin was stopped and she received vitamin K for reversal of high INR. Today INR is 1.8. Will watch for any further GI blood loss before resuming Coumadin. Follow INR daily (6) Candidiasis of mouth Assessment/Plan: Continue with oral fluconazole daily. Her EKG showed QTC prolongation yesterday, another EKG done today shows no QT prolongation (long QTc is of concern on fluconazole). (7) Breast cancer Assessment/Plan: On chemotherapy, apparently that was her first treatment 2 weeks ago. (8) Factor V Leiden Assessment/Plan: Patient has had 2 DVTs in her life. She was resuming her Coumadin with Lovenox bridging after it was stopped in order to have a port placed. (9) Diabetes mellitus Qualifiers: Diabetes mellitus type: type 2 Assessment/Plan: Continue with carb controlled diet as her diet improves/advances. Follow fingerstick glucoses and on sliding scale insulin coverage (10) Personal history of DVT (deep vein thrombosis) Assessment/Plan: As per Hx (11) Hypothyroidism Assessment/Plan: TSH was checked and is extremely high at 43. This suggests she is either not taking her thyroid medicine at all or is on a very inappropriately low dose. Will increase her dose, which was ordered x1 by IV yesterday. We will discussed with her about compliance of this medication (12) Hyperlipidemia Assessment/Plan: As per history, her statin is currently on hold (13) GERD (gastroesophageal reflux disease) Assessment/Plan: As per history. She is currently getting PUD prophylaxis with IV Protonix (14) Elevated lipase Assessment/Plan: This has resolved. Her CT abdomen did not show any pancreatic abnormality. Pancreatitis has been ruled out (15) Sepsis Assessment/Plan: Resolved. - Current Meds Current Meds: Current Medications Generic Name Dose Route Start Last Admin Trade Name Freq PRN Reason Stop Dose Admin Acetaminophen 650 mg 03/05/20 16:51 03/07/20 10:52 Tylenol PO 650 mg Q4HR PRN Administration Pain or Fever > 38C (100.4F) Fluconazole 100 mg 03/06/20 16:36 03/07/20 10:08 Diflucan PO 100 mg DAILY CARLOZ Administration Potassium Chloride/Dextrose/Sod Cl 1,000 mls @ 125 mls/hr 03/05/20 17:00 03/07/20 12:43 IV 125 mls/hr .Q8H CARLOZ Administration Ciprofloxacin 400 mg in 200 mls @ 200 mls/hr 03/06/20 07:00 03/07/20 07:35 Cipro 400 Mg/200 Ml IV Infused Q12H CARLOZ Infusion Metronidazole 500 mg in 100 mls @ 100 mls/hr 03/05/20 21:00 03/07/20 13:45 Flagyl 500 Mg/100 Ml IV Infused Q8H CARLOZ Infusion Levothyroxine Sodium 125 mcg 03/07/20 07:00 03/07/20 06:33 Synthroid PO 125 mcg QDAC CARLOZ Administration Lidocaine 1 patch 03/07/20 14:26 03/07/20 16:07 Lidoderm Patch TOP 1 patch DAILY PRN Administration PAIN Multi-Ingredient Mouthwash/Gargle 30 ml 03/05/20 22:46 03/07/20 11:13 PO 30 ml Q4H PRN Administration Mouth Sore Pain Ondansetron HCl 4 mg 03/05/20 16:51 03/07/20 00:10 Zofran Inj IVP 4 mg Q6HR PRN Administration Nausea / Vomiting Pantoprazole Sodium 40 mg 03/06/20 07:00 03/07/20 06:33 Protonix PO 40 mg QDAC CARLOZ Administration Sodium Chloride 10 ml 03/05/20 17:00 03/07/20 10:09 Normal Saline Flush 0.9% IVP Not Given 0100,0900,1700 CARLOZ Sodium Chloride 20 ml 03/05/20 19:41 03/06/20 07:14 Normal Saline Flush 0.9% IVP 20 ml PRN PRN Administration After Blood Draw Sodium Chloride 2 sprays 03/05/20 23:27 03/06/20 00:40 [place] SAMANTHA 2 sprays Q4HR PRN Administration Nasal Congestion - Lab Result Fish Bone Diagrams: 03/07/20 05:45 03/07/20 16:10 - EKG Results EKG Interpreted Independently: Yes EKG Comparison: Changed from prior EKG EKG Findings: Normal sinus rhythm, rate 63, within normal limits, there is no longer QTc prolongation as there was yesterday. - Additional Planning My Orders: My Active Orders 03/06/20 16:36 Fluconazole [Diflucan] 100 mg PO DAILY 03/07/20 05:45 HEMOGLOBIN A1c% [CHEM] Routine 03/07/20 07:00 Levothyroxine [Synthroid] 125 mcg PO QDAC 03/07/20 14:26 Lidocaine Patch 5% [Lidoderm Patch] 1 patch TOP DAILY PRN 03/07/20 15:00 POTASSIUM [CHEM] Timed 03/07/20 17:00 Saccharomyces Boulardii [Florastor] 250 mg PO BIDWM Subjective - Subjective Patient Reports: Feeling Better, Other (Low back pain developed today, improved with the lidocaine patch) Nursing Reports: Other (No BMs at all since yesterday at 8 PM.) Objective Vital Signs: Vital Signs - 24 hr 03/06/20 03/06/20 03/07/20 20:35 23:39 05:00 Temperature 36.3 C L 36.4 C L 36.8 C Heart Rate [ 73 70 70 Brachial] Respiratory 20 16 14 Rate Blood Pressure 117/40 L 133/57 H 94/70 [Right Brachial artery] O2 Saturation 98 98 97 03/07/20 03/07/20 08:00 13:00 Temperature 36.8 C 36.3 C L Heart Rate [ 71 72 Brachial] Respiratory 16 18 Rate Blood Pressure 117/50 L 126/50 L [Right Brachial artery] O2 Saturation 100 99 Oxygen O2 Source Room air I&O (Last 24 Hrs): Intake and Output Totals x24h 03/05/20 03/06/2003/07/20 23:59 23:59 23:59 Intake Total 6564.167 2635.0 Output Total 2054 8395 Balance 3388.167 -1140.0 General: Alert, Oriented x3 HEENT: Mucous membr. moist/pink, Other (Deaf) Neck: Supple, No JVD Neuro: Alert, Non Focal, Other (Deaf) Cardiovascular: Regular rate Respiratory: No respiratory distress Abdomen: Soft Extremities: No edema - Results Results: Laboratory Results WBC 10.7 x10^3/uL (4.8-10.8) 03/07/20 05:45 RBC 3.86 10^6/uL (4.20-5.40) L 03/07/20 05:45 Hgb 11.8 g/dL (12.0-16.0) L 03/07/20 05:45 Hct 34.7 % (37.0-47.0) L 03/07/20 05:45 MCV 89.9 fL (81.0-99.0) 03/07/20 05:45 MCH 30.6 pg (27.0-31.0) 03/07/20 05:45 MCHC 34.0 g/dL (32.0-36.0) 03/07/20 05:45 RDW 13.5 % (12.0-15.0) 03/07/20 05:45 Plt Count 138 10^3/uL (130-450) 03/07/20 05:45 MPV 9.9 fL (7.9-10.8) 03/07/20 05:45 Neut # (Auto) Not Reportable 03/07/20 05:45 Lymph # (Auto) Not Reportable 03/07/20 05:45 [place] # (Auto) Not Reportable 03/07/20 05:45 Eos # (Auto) Not Reportable 03/07/20 05:45 Baso # (Auto) Not Reportable 03/07/20 05:45 Absolute Nucleated RBC Not Reportable 03/07/20 05:45 Total Counted 100 03/07/20 05:45 Band Neuts % (Manual) 7 % (0-10) 03/07/20 05:45 Reactive Lymphs % (Man) 11 % 03/07/20 05:45 Abnorm Lymph % (Manual) 0 % 03/07/20 05:45 Myelocytes % 1 % (-0) H 03/07/20 05:45 Nucleated RBC % Not Reportable 03/07/20 05:45 Neutrophils # (Manual) 7.5 10^3/uL (1.5-6.6) H 03/07/20 05:45 Lymphocytes # (Manual) 2.1 10^3/uL (1.5-3.5) 03/07/20 05:45 Monocytes # (Manual) 0.9 10^3/uL (0.0-1.0) 03/07/20 05:45 Eosinophils # (Manual) 0.0 10^3/uL (0-0.7) 03/07/20 05:45 Basophils # (Manual) 0.1 10^3/uL (0-0.1) 03/07/20 05:45 Nucleated RBCs 1 % 03/07/20 05:45 Differential Comment MANUAL DIFFERENTIAL 03/07/20 05:45 Manual Slide Review Indicated 03/06/20 07:15 WBC Morphology 2+ VACUOLATION (NORMAL) 2+ TOXIC GRANULATION (NORMAL) 1+ REACTIVE LYMPHS (NORMAL) 03/05/20 12:33 WBC Morphology 2+ VACUOLATION (NORMAL) 2+ TOXIC GRANULATION (NORMAL) 1+ REACTIVE LYMPHS (NORMAL) 03/05/20 12:33 WBC Morphology 2+ VACUOLATION (NORMAL) 2+ TOXIC GRANULATION (NORMAL) 1+ REACTIVE LYMPHS (NORMAL) 03/05/20 12:33 Platelet Estimate NORMAL (130-450,000) (NORMAL) 03/05/20 12:33 Platelet Morphology NORMAL APPEARANCE (NORMAL) 03/05/20 12:33 RBC Morph Micro Appear 1+ POLYCHROMASIA (NORMAL) 03/07/20 05:45 PT 19.0 secs (9.9-12.6) H 03/07/20 05:45 INR 1.8 (0.8-1.2) H 03/07/20 05:45 Sodium 142 mmol/L (135-145) 03/07/20 05:45 Potassium 2.3 mmol/L (3.5-5.0) L* 03/07/20 05:45 Chloride 124 mmol/L (101-111) H* 03/07/20 05:45 Carbon Dioxide 13 mmol/L (21-32) L 03/07/20 05:45 Anion Gap 5.0 (6-13) L 03/07/20 05:45 BUN < 5 mg/dL (6-20) L 03/07/20 05:45 Creatinine 0.4 mg/dL (0.4-1.0) 03/07/20 05:45 Estimated GFR (MDRD) 165 (>89) 03/07/20 05:45 Glucose 95 mg/dL (70-100) 03/07/20 05:45 Lactic Acid 2.3 mmol/L (0.5-2.2) H 03/05/20 19:50 Calcium 4.9 mg/dL (8.5-10.3) L* 03/07/20 05:45 Magnesium 1.3 mg/dL (1.7-2.8) L 03/07/20 05:45 Total Bilirubin 0.6 mg/dL (0.2-1.0) 03/05/20 12:33 AST 60 IU/L (10-42) H 03/05/20 12:33 ALT 39 IU/L (10-60) 03/05/20 12:33 Alkaline Phosphatase 117 IU/L (42-121) 03/05/20 12:33 Total Protein 7.9 g/dL (6.7-8.2) 03/05/20 12:33 Albumin 4.3 g/dL (3.2-5.5) 03/05/20 12:33 Globulin 3.6 g/dL (2.1-4.2) 03/05/20 12:33 Albumin/Globulin Ratio 1.2 (1.0-2.2) 03/05/20 12:33 Lipase 75 U/L (22-51) H 03/07/20 05:45 TSH 43.62 uIU/mL (0.34-5.60) H 03/07/20 05:45 Urine Color YELLOW 03/05/20 12:00 Urine Clarity CLEAR (CLEAR) 03/05/20 12:00 Urine pH 6.0 PH (5.0-7.5) 03/05/20 12:00 Ur Specific [place] 1.010 (1.002-1.030) 03/05/20 12:00 Urine Protein NEGATIVE mg/dL (NEGATIVE) 03/05/20 12:00 Urine Glucose (UA) NEGATIVE mg/dL (NEGATIVE) 03/05/20 12:00 Urine Ketones NEGATIVE mg/dL (NEGATIVE) 03/05/20 12:00 Urine Occult Blood TRACE-LYSE (NEGATIVE) 03/05/20 12:00 Urine Nitrite NEGATIVE (NEGATIVE) 03/05/20 12:00 Urine Bilirubin NEGATIVE (NEGATIVE) 03/05/20 12:00 Urine Urobilinogen 0.2 (NORMAL) E.U./dL (NORMAL) 03/05/20 12:00 Ur Leukocyte Esterase NEGATIVE (NEGATIVE) 03/05/20 12:00 Ur Microscopic Review NOT INDICATED 03/05/20 12:00 Urine Culture Comments NOT INDICATED 03/05/20 12:00 Stl C. diff Tox B Gene NEGATIVE (NEGATIVE) 03/05/20 12:10
[2020-03-07] MEDS: SACCHAROMYCES BOULARDII 250 MG CAPSULE PO SCH (16:55)
--- NOTE | 2020-03-07 20:09 | CONSULTATION NOTE ---
Referring Provider Name of Referring Provider:: Anisha Thornton Consult Date: 03/07/20 Chief Complaint - Chief Complaint Chief Complaint: Colitis History of Present Illness - Admitted From Admitted From:: ED - History Obtained From Records Reviewed: Physician and other provider notes History obtained from: Patient and significant other Exam Limitations: Sign language translation ap used - History of Present Illness HPI Comment/Other: Patient is a 59-year-old female with current diagnosis of stage III breast cancer who sees Dr. Zabala (oncologist) at [place] and started chemotherapy 2 weeks ago. She saw her primary care physician on Friday and had routine labs done yesterday which showed an elevated white blood cell count. Consequently she was advised to go to the hospital for further evaluation. She was seen and evaluated and determined to have chemotherapy associated colitis and likely bacterial translocation. I have been consulted regarding management/treatment of colitis. Since admission, her symptoms have improved significantly improved. She report she is still having diarrhea and seeing blood in her stools. She says her pain level is about a 7 of 10 currently. History - Past Medical History Cardiovascular: reports: Hypertension, High cholesterol Respiratory: reports: None Neuro: reports: None Endocrine/Autoimmune: reports: Type 2 diabetes, HyPOthyroidism GI: reports: None MRB ENGINEER: reports: None : reports: None HEENT: reports: Chronic hearing loss Psych: reports: None Musculoskeletal: reports: None Derm: reports: None MRSA Hx?: No - Past Surgical History Other past surgical history: Port placed February 21, 2020. Cyst removal from the roof of her mouth about 6 months ago. Cervical fusion in 1997. - Family & Social History Family History Comment/Other: Patient's father had diabetes mellitus. Significant history of factor V Leiden and Asthma on maternal side. Living arrangement: At home Living Situation: With spouse/s.o. Social History Notes: Patient lives at home with her significant other. She is a schoolteacher. She is normally independent of activities of daily living. She mainly uses sign language for communication because of deafness. She reports at 30+ year pack per year history. She quit smoking about 25 years ago. She drinks 1 glass of wine daily with dinner. She denies any recreational drug use. - POLST Patient has POLST: No POLST Status: Full Code Meds/Allgy - Home Medications Home Medications: Ambulatory Orders Medication Instructions Recorded Confirmed Atorvastatin [Lipitor] 10 mg PO QPM 12/02/15 03/06/20 Levothyroxine [Synthroid] 125 mcg PO QDAC 12/02/15 03/06/20 Omeprazole [PriLOSEC] 20 mg PO DAILY 12/02/15 03/06/20 lisinopriL [Lisinopril] 10 mg PO DAILY 12/02/15 03/06/20 metFORMIN [Glucophage] 1,500 mg PO DAILY 12/02/15 03/06/20 Warfarin [Coumadin] 5 mg PO DAILY 03/06/20 03/06/20 - Allergies Allergies/Adverse Reactions: Allergies Allergy/AdvReac Type Severity Reaction Status Date / Time Opioids - Morphine Analogues AdvReac Intermediate Emesis Verified 03/07/20 15:14 Opioids-Meperidine and AdvReac Intermediate Emesis Verified 03/07/20 15:14 Related Opioids-Methadone and Related AdvReac Intermediate Emesis Verified 03/07/20 15:14 Review of Systems - Constitutional Constitutional: reports: Fatigue, Chills, Malaise, Weakness - Gastrointestinal Gastrointestinal: reports: Abdominal pain, Abdominal distention, Diarrhea, Rectal bleeding. denies: Nausea, Vomiting Exam - Vital Signs Reviewed Vital Signs: Yes Vital Signs: Vital Signs x48h Temp Pulse Resp BP Pulse Ox 03/07/20 16:36 36.9 C 62 18 104/52 L 100 03/07/20 13:00 36.3 C L 72 18 126/50 L 99 - Physical Exam Abdomen: positive: Nml bowel sounds, Tenderness. negative: Guarding, Rebound Conclusion and Plan - Lab Results Laboratory Results 03/07/20 16:10: Potassium 4.1 03/07/20 05:45: Estimat Average Glucose 154 H, Hemoglobin A1c % 7.0 H 03/07/20 05:45: Magnesium 1.3 L 03/07/20 05:45: TSH 43.62 H 03/07/20 05:45: Sodium 142, Potassium 2.3 L*, Chloride 124 H*, Carbon Dioxide 13 L, Anion Gap 5.0 L, BUN < 5 L, Creatinine 0.4, Estimated GFR (MDRD) 165, Glucose 95, Calcium 4.9 L*, Lipase 75 H 03/07/20 05:45: WBC 10.7, RBC 3.86 L, Hgb 11.8 L, Hct 34.7 L, MCV 89.9, MCH 30.6, MCHC 34.0, RDW 13.5, Plt Count 138, MPV 9.9, Neut # (Auto) Not Reportable, Lymph # (Auto) Not Reportable, [place] # (Auto) Not Reportable, Eos # (Auto) Not Reportable, Baso # (Auto) Not Reportable, Absolute Nucleated RBC Not Reportable, Total Counted 100, Band Neuts % (Manual) 7, Reactive Lymphs % (Man) 11, Abnorm Lymph % (Manual) 0, Myelocytes % 1 H, Nucleated RBC % Not Reportable, Neutrophils # (Manual) 7.5 H, Lymphocytes # (Manual) 2.1, Monocytes # (Manual) 0.9, Eosinophils # (Manual) 0.0, Basophils # (Manual) 0.1, Nucleated RBCs 1, Differential Comment MANUAL DIFFERENTIAL, RBC Morph Micro Appear 1+ POLYCHROMASIA 03/07/20 05:45: PT 19.0 H, INR 1.8 H 03/06/20 07:15: Lipase 115 H 03/06/20 07:15: Sodium 135, Potassium 3.2 L, Chloride 106, Carbon Dioxide 18 L, Anion Gap 11.0, BUN 7, Creatinine 0.7, Estimated GFR (MDRD) 86 L, Glucose 148 H, Calcium 8.5 03/06/20 07:15: WBC 12.9 H, RBC 4.13 L, Hgb 12.9, Hct 36.8 L, MCV 89.1, MCH 31.2 H, MCHC 35.1, RDW 13.1, Plt Count 161, MPV 10.3, Neut # (Auto) 7.8 H, Lymph # (Auto) 3.1, Barber # (Auto) 1.2 H, Eos # (Auto) 0.0, Baso # (Auto) 0.1, Absolute Nucleated RBC 0.00, Nucleated RBC % 0.0, Manual Slide Review Indicated, RBC Morph Micro Appear 1+ ANISOCYTOSIS 03/06/20 07:15: PT 59.0 H, INR 5.9 H* 03/05/20 19:50: Lactic Acid 2.3 H 03/05/20 12:10: Stl C. diff Tox B Gene NEGATIVE - Diagnostic Imaging Results Diagnostic Imaging Results Comments: Diffuse colitis without evidence of ischemia or necrosis. - EKG Results EKG Interpreted Independently: No - Diagnosis Diagnosis: Chemotherapy associated diffuse colitis - Plan Plan: Rapid improvement thus far with broad spectrum antibiotics and supportive care. I expect she will continue to improve with current care. I have expressed this to the patient. I appreciate being included in the care of this nice lady. I am available at any time if I can be of assistance.
[2020-03-08] MEDS: SODIUM CHLORIDE FLUSH 0.9% 10 ML SYRINGE IVP SCH ×3 (00:02→16:26)
[2020-03-08] MEDS: D5NS W/20 MEQ KCL 1,000 ML IV SCH ×4 (01:19→22:32)
[2020-03-08 04:40] LABS: BASOPHILS % (AUTO) 0.6 %; HGB - HEMOGLOBIN 11.7 g/dL (12.0-16.0); LYMPHOCYTES % (AUTO) 24.6 %; MEAN CORPUSCULAR HEMOGLOBIN 30.2 pg (27.0-31.0); MEAN CORPUSCULAR HGB CONC 33.2 g/dL (32.0-36.0); MEAN PLATELET VOLUME 9.2 fL (7.9-10.8); MONOCYTES % (AUTO) 7.8 %; NEUTROPHILS % (AUTO) 61.8 %; PLT - PLATELET COUNT 122 10^3/uL (130-450); RED BLOOD COUNT 3.87 10^6/uL (4.20-5.40); RED CELL DISTRIBUTION WIDTH 13.8 % (12.0-15.0)
[2020-03-08] MEDS: metroNIDAZOLE 500 MG/100 ML 500 MG/100 ML BAG IV SCH ×3 (04:44→20:12)
[2020-03-08 04:45] LABS: ABNORMAL LYMPHS % (MANUAL) 0 %
[2020-03-08 04:46] LABS: INR 1.4 (0.8-1.2); PT - PROTHROMBIN TIME 15.5 secs (9.9-12.6)
[2020-03-08 04:52] LABS: BUN - BLOOD UREA NITROGEN < 5 mg/dL (6-20); CALCIUM 8.5 mg/dL (8.5-10.3); CARBON DIOXIDE - CO2 22 mmol/L (21-32); CHLORIDE 112 mmol/L (101-111); CREATININE 0.7 mg/dL (0.4-1.0); GLUCOSE 159 mg/dL (70-100); SODIUM 141 mmol/L (135-145)
[2020-03-08 05:34] LABS: BAND NEUTROPHILS % (MANUAL) 9 %; DIFFERENTIAL COMMENT MANUAL DIFFERENTIAL; EOSINOPHILS # (MANUAL) 0.1 10^3/uL (0-0.7); LYMPHOCYTES # (MANUAL) 3.1 10^3/uL (1.5-3.5); LYMPHOCYTES % (MANUAL) 26 %; MONOCYTES # (MANUAL) 0.6 10^3/uL (0.0-1.0); PLATELET ESTIMATE, MANUAL DECREASED (<130,000) (NORMAL); RBC MORPHOLOGY (MULTIPLE) NORMAL APPEARANCE (NORMAL)
[2020-03-08] MEDS: LEVOTHYROXINE 125 MCG TABLET PO SCH (06:11)
[2020-03-08] MEDS: CIPROFLOXACIN 400 MG/200 ML 400 MG/200 ML BAG IV SCH ×2 (06:11→17:44)
[2020-03-08] MEDS: PANTOPRAZOLE 40 MG TABLET PO SCH (06:11)
[2020-03-08] MEDS: SODIUM CHLORIDE 0.65% NASAL SPRAY NAS PRN (06:16)
[2020-03-08] MEDS: FLUCONAZOLE 100 MG TABLET PO SCH (08:16)
[2020-03-08] MEDS: SACCHAROMYCES BOULARDII 250 MG CAPSULE PO SCH ×2 (08:16→16:26)
--- NOTE | 2020-03-08 13:41 | PROVIDER PROGRESS NOTE ---
Assessment/Plan - Problem List (1) Colitis Assessment/Plan: The amount of diarrhea is decreasing but advancing her diet has caused abdominal pain. Will keep her diet at this order (pured plus clear liquids, avoid high fiber and milk products). Continue with IV antibiotics. Continue with IV hydration (2) Hypokalemia due to excessive gastrointestinal loss of potassium Assessment/Plan: Replace. Follow BMP daily (3) Hypocalcemia Assessment/Plan: Replace. Follow BMP daily (4) Hematochezia Assessment/Plan: Her last 2 BMs were "liquid and red". Her symptoms are slightly improved related to the colitis. General surgery note appreciated, they are following along with us. Follow hemoglobin daily (5) Elevated INR (international normalized ratio) due to prior anticoagulant medication ingestion Assessment/Plan: Yesterday INR was 1.8, today 1.4. She will not be on Coumadin because of continued blood in the stool Will order SCDs for DVT prophylaxis therefore (6) Candidiasis of mouth Assessment/Plan: Continue with her oral fluconazole. EKG yesterday has been stable regarding QTC (7) Breast cancer Assessment/Plan: As per history, the chemotherapy was first given 2 weeks ago and because this colitis (8) Factor V Leiden Assessment/Plan: She has had 2 DVTs in her life and is on lifelong Coumadin. She knows that Coumadin is on hold currently because of blood in the stool (9) Diabetes mellitus Qualifiers: Diabetes mellitus type: type 2 Assessment/Plan: Carb controlled diet and sliding scale insulin coverage. Metformin is on hold in case of RAEGAN (10) Personal history of DVT (deep vein thrombosis) Assessment/Plan: As above in #8 (11) Hypothyroidism Assessment/Plan: Her home thyroid medicine was resumed (12) Hyperlipidemia Assessment/Plan: Statin is on hold in order to decrease the amount of pills needed for digestion in the intestines (13) GERD (gastroesophageal reflux disease) Assessment/Plan: She is getting Protonix here for ulcer prophylaxis instead of her home omeprazole, This was explained to her today (14) Elevated lipase Assessment/Plan: Phase reactant, since her imaging of the pancreas was normal (15) Sepsis Assessment/Plan: Resolved (16) Deaf Assessment/Plan: Sign language and writing are being used to communicate, occasionally her inter preter on the tablet (17) Legally blind Assessment/Plan: Her partner, at bedside in her room, 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, she has had it since but it was diagnosed at age 51 - Current Meds Current Meds: Current Medications Generic Name Dose Route Start Last Admin Trade Name Julienne PRN Reason Stop Dose Admin Acetaminophen 650 mg 03/05/20 16:51 03/07/20 23:51 Tylenol PO 650 mg Q4HR PRN Administration Pain or Fever > 38C (100.4F) Fluconazole 100 mg 03/06/20 16:36 03/08/20 08:16 Diflucan PO 100 mg DAILY CARLOZ Administration Potassium Chloride/Dextrose/Sod Cl 1,000 mls @ 125 mls/hr 03/05/20 17:00 03/08/20 12:50 IV 0 mls/hr .Q8H CARLOZ Infusion Ciprofloxacin 400 mg in 200 mls @ 200 mls/hr 03/06/20 07:00 03/08/20 08:24 Cipro 400 Mg/200 Ml IV Infused Q12H CARLOZ Infusion Metronidazole 500 mg in 100 mls @ 100 mls/hr 03/05/20 21:00 03/08/20 12:55 Flagyl 500 Mg/100 Ml IV 100 mls/hr Q8H CARLOZ Administration Levothyroxine Sodium 125 mcg 03/07/20 07:00 03/08/20 06:11 Synthroid PO 125 mcg QDAC CARLOZ Administration Lidocaine 1 patch 03/07/20 14:26 03/07/20 21:49 Lidoderm Patch TOP 1 patch DAILY PRN Administration PAIN Multi-Ingredient Mouthwash/Gargle 30 ml 03/05/20 22:46 03/07/20 11:13 PO 30 ml Q4H PRN Administration Mouth Sore Pain Ondansetron HCl 4 mg 03/05/20 16:51 03/07/20 00:10 Zofran Inj IVP 4 mg Q6HR PRN Administration Nausea / Vomiting Pantoprazole Sodium 40 mg 03/06/20 07:00 03/08/20 06:11 Protonix PO 40 mg QDAC CARLOZ Administration Saccharomyces Boulardii 250 mg 03/07/20 17:00 03/08/20 08:16 Florastor PO 250 mg BIDWM CARLOZ Administration Sodium Chloride 10 ml 03/05/20 17:00 03/08/20 08:20 Normal Saline Flush 0.9% IVP Not Given 0100,0900,1700 CARLOZ Sodium Chloride 20 ml 03/05/20 19:41 03/06/20 07:14 Normal Saline Flush 0.9% IVP 20 ml PRN PRN Administration After Blood Draw Sodium Chloride 2 sprays 03/05/20 23:27 03/08/20 06:16 [place] SAMANTHA 2 sprays Q4HR PRN Administration Nasal Congestion - Lab Result Fish Bone Diagrams: 03/08/20 04:25 03/08/20 04:25 - Additional Planning My Orders: My Active Orders 03/07/20 14:26 Lidocaine Patch 5% [Lidoderm Patch] 1 patch TOP DAILY PRN 03/07/20 16:52 Shower [RC] PRN 03/07/20 17:00 Saccharomyces Boulardii [Florastor] 250 mg PO BIDWM 03/08/20 Lunch Dysphagia Puree Diet [DIET] Subjective - Subjective Patient Reports: Feeling Better (Overall feels better with less pain in the abdomen and last BM was about 7 hours ago, but this diet (advanced to pure), with each bite gets abdominal pain which passes and 5 min. Also her vision has changed from horizontal stripes to vertical stripes (blind like this since )) Objective Vital Signs: Vital Signs - 24 hr 03/07/20 03/07/20 03/08/20 16:36 23:38 09:16 Temperature 36.9 C 36.5 C 37.0 C Heart Rate [ 62 72 65 Brachial] Respiratory 18 18 19 Rate Blood Pressure 104/52 L 132/58 H 116/61 [Right Brachial artery] O2 Saturation 100 100 98 Oxygen O2 Source Room air I&O (Last 24 Hrs): Intake and Output Totals x24h 03/06/20 03/07/20 03/08/20 23:59 23:59 23:59 Intake Total 6564.167 4856.0 2226.25 Output Total 3176 4975 3700 Balance 3388.167 -119.0 -1473.75 General: Alert, Oriented x3 HEENT: Atraumatic, EOMI Neck: Supple, No JVD Neuro: Alert, Other (Legally blind bilaterally, and is deaf and uses sign language) Cardiovascular: Regular rate Respiratory: No respiratory distress Abdomen: Soft, Other (Distended with hyperactive bowel sounds, nontender) Extremities: No edema - Results Results: Laboratory Results WBC 12.0 x10^3/uL (4.8-10.8) H 03/08/20 04:25 RBC 3.87 10^6/uL (4.20-5.40) L 03/08/20 04:25 Hgb 11.7 g/dL (12.0-16.0) L 03/08/20 04:25 Hct 35.2 % (37.0-47.0) L 03/08/20 04:25 MCV 91.0 fL (81.0-99.0) 03/08/20 04:25 MCH 30.2 pg (27.0-31.0) 03/08/20 04:25 MCHC 33.2 g/dL (32.0-36.0) 03/08/20 04:25 RDW 13.8 % (12.0-15.0) 03/08/20 04:25 Plt Count 122 10^3/uL (130-450) L 03/08/20 04:25 MPV 9.2 fL (7.9-10.8) 03/08/20 04:25 Neut # (Auto) Not Reportable 03/08/20 04:25 Lymph # (Auto) Not Reportable 03/08/20 04:25 [place] # (Auto) Not Reportable 03/08/20 04:25 Eos # (Auto) Not Reportable 03/08/20 04:25 Baso # (Auto) Not Reportable 03/08/20 04:25 Absolute Nucleated RBC Not Reportable 03/08/20 04:25 Total Counted 100 03/08/20 04:25 Band Neuts % (Manual) 9 % (0-10) 03/08/20 04:25 Reactive Lymphs % (Man) 11 % 03/07/20 05:45 Abnorm Lymph % (Manual) 0 % 03/08/20 04:25 Myelocytes % 1 % (-0) H 03/07/20 05:45 Nucleated RBC % Not Reportable 03/08/20 04:25 Neutrophils # (Manual) 8.2 10^3/uL (1.5-6.6) H 03/08/20 04:25 Lymphocytes # (Manual) 3.1 10^3/uL (1.5-3.5) 03/08/20 04:25 Monocytes # (Manual) 0.6 10^3/uL (0.0-1.0) 03/08/20 04:25 Eosinophils # (Manual) 0.1 10^3/uL (0-0.7) 03/08/20 04:25 Basophils # (Manual) 0.0 10^3/uL (0-0.1) 03/08/20 04:25 Nucleated RBCs 1 % 03/07/20 05:45 Differential Comment MANUAL DIFFERENTIAL 03/08/20 04:25 Manual Slide Review Indicated 03/06/20 07:15 WBC Morphology 2+ VACUOLATION (NORMAL) 2+ TOXIC GRANULATION (NORMAL) 1+ REACTIVE LYMPHS (NORMAL) 03/05/20 12:33 WBC Morphology 2+ VACUOLATION (NORMAL) 2+ TOXIC GRANULATION (NORMAL) 1+ REACTIVE LYMPHS (NORMAL) 03/05/20 12:33 WBC Morphology 2+ VACUOLATION (NORMAL) 2+ TOXIC GRANULATION (NORMAL) 1+ REACTIVE LYMPHS (NORMAL) 03/05/20 12:33 Platelet Estimate DECREASED (<130,000) (NORMAL) 03/08/20 04:25 Platelet Morphology NORMAL APPEARANCE (NORMAL) 03/05/20 12:33 RBC Morph Micro Appear NORMAL APPEARANCE (NORMAL) 03/08/20 04:25 PT 15.5 secs (9.9-12.6) H 03/08/20 04:25 INR 1.4 (0.8-1.2) H 03/08/20 04:25 Sodium 141 mmol/L (135-145) 03/08/20 04:25 Potassium 3.8 mmol/L (3.5-5.0) 03/08/20 04:25 Chloride 112 mmol/L (101-111) H 03/08/20 04:25 Carbon Dioxide 22 mmol/L (21-32) 03/08/20 04:25 Anion Gap 7.0 (6-13) 03/08/20 04:25 BUN < 5 mg/dL (6-20) L 03/08/20 04:25 Creatinine 0.7 mg/dL (0.4-1.0) 03/08/20 04:25 Estimated GFR (MDRD) 86 (>89) L 03/08/20 04:25 Glucose 159 mg/dL (70-100) H 03/08/20 04:25 Estimat Average Glucose 154 mg/dL (70-100) H 03/07/20 05:45 Hemoglobin A1c % 7.0 % (4.27-6.07) H 03/07/20 05:45 Lactic Acid 2.3 mmol/L (0.5-2.2) H 03/05/20 19:50 Calcium 8.5 mg/dL (8.5-10.3) 03/08/20 04:25 Magnesium 1.3 mg/dL (1.7-2.8) L 03/07/20 05:45 Total Bilirubin 0.6 mg/dL (0.2-1.0) 03/05/20 12:33 AST 60 IU/L (10-42) H 03/05/20 12:33 ALT 39 IU/L (10-60) 03/05/20 12:33 Alkaline Phosphatase 117 IU/L (42-121) 03/05/20 12:33 Total Protein 7.9 g/dL (6.7-8.2) 03/05/20 12:33 Albumin 4.3 g/dL (3.2-5.5) 03/05/20 12:33 Globulin 3.6 g/dL (2.1-4.2) 03/05/20 12:33 Albumin/Globulin Ratio 1.2 (1.0-2.2) 03/05/20 12:33 Lipase 75 U/L (22-51) H 03/07/20 05:45 TSH 43.62 uIU/mL (0.34-5.60) H 03/07/20 05:45 Urine Color YELLOW 03/05/20 12:00 Urine Clarity CLEAR (CLEAR) 03/05/20 12:00 Urine pH 6.0 PH (5.0-7.5) 03/05/20 12:00 Ur Specific [place] 1.010 (1.002-1.030) 03/05/20 12:00 Urine Protein NEGATIVE mg/dL (NEGATIVE) 03/05/20 12:00 Urine Glucose (UA) NEGATIVE mg/dL (NEGATIVE) 03/05/20 12:00 Urine Ketones NEGATIVE mg/dL (NEGATIVE) 03/05/20 12:00 Urine Occult Blood TRACE-LYSE (NEGATIVE) 03/05/20 12:00 Urine Nitrite NEGATIVE (NEGATIVE) 03/05/20 12:00 Urine Bilirubin NEGATIVE (NEGATIVE) 03/05/20 12:00 Urine Urobilinogen 0.2 (NORMAL) E.U./dL (NORMAL) 03/05/20 12:00 Ur Leukocyte Esterase NEGATIVE (NEGATIVE) 03/05/20 12:00 Ur Microscopic Review NOT INDICATED 03/05/20 12:00 Urine Culture Comments NOT INDICATED 03/05/20 12:00 Stl C. diff Tox B Gene NEGATIVE (NEGATIVE) 03/05/20 12:10
[2020-03-08] MEDS: ACETAMINOPHEN 325 MG TABLET PO PRN (20:06)
[2020-03-09 05:33] LABS: BASOPHILS % (AUTO) 0.4 %; HGB - HEMOGLOBIN 11.7 g/dL (12.0-16.0); LYMPHOCYTES # (AUTO) 2.4 10^3/uL (1.5-3.5); LYMPHOCYTES % (AUTO) 26.6 %; MEAN CORPUSCULAR HEMOGLOBIN 30.9 pg (27.0-31.0); MEAN CORPUSCULAR VOLUME 90.8 fL (81.0-99.0); MEAN PLATELET VOLUME 9.6 fL (7.9-10.8); MONOCYTES # (AUTO) 0.7 10^3/uL (0.0-1.0); MONOCYTES % (AUTO) 7.7 %; NEUTROPHILS # (AUTO) 5.4 10^3/uL (1.5-6.6); NEUTROPHILS % (AUTO) 60.7 %; PLT - PLATELET COUNT 102 10^3/uL (130-450); RED BLOOD COUNT 3.79 10^6/uL (4.20-5.40); RED CELL DISTRIBUTION WIDTH 13.8 % (12.0-15.0)
[2020-03-09] MEDS: metroNIDAZOLE 500 MG/100 ML 500 MG/100 ML BAG IV SCH (05:38)
[2020-03-09] MEDS: LEVOTHYROXINE 125 MCG TABLET PO SCH (05:38)
[2020-03-09] MEDS: PANTOPRAZOLE 40 MG TABLET PO SCH (05:38)
[2020-03-09 05:43] LABS: BUN - BLOOD UREA NITROGEN < 5 mg/dL (6-20); CALCIUM 8.4 mg/dL (8.5-10.3); CARBON DIOXIDE - CO2 24 mmol/L (21-32); CHLORIDE 110 mmol/L (101-111); CREATININE 0.6 mg/dL (0.4-1.0); GLUCOSE 173 mg/dL (70-100); SODIUM 140 mmol/L (135-145)
[2020-03-09] MEDS: CIPROFLOXACIN 400 MG/200 ML 400 MG/200 ML BAG IV SCH (06:34)
[2020-03-09 06:35] LABS: INR 1.3 (0.8-1.2); PT - PROTHROMBIN TIME 14.6 secs (9.9-12.6)
[2020-03-09] MEDS: FLUCONAZOLE 100 MG TABLET PO SCH (08:14)
[2020-03-09] MEDS: SACCHAROMYCES BOULARDII 250 MG CAPSULE PO SCH (08:16)
[2020-03-09] MEDS: SODIUM CHLORIDE FLUSH 0.9% 10 ML SYRINGE IVP SCH ×2 (08:29)
[2020-03-09] MEDS: ACETAMINOPHEN 325 MG TABLET PO PRN ×2 (08:35→13:02)
--- NOTE | 2020-03-09 11:32 | Discharge Plan ---
Discharge Plan Problem Reviewed?: Yes Disposition: Home, Self Care Condition: Stable Prescriptions: Ciprofloxacin HCl [Cipro] 500 mg PO BID #4 tablet Saccharomyces Boulardii [Florastor] 250 mg PO BIDWM #4 capsule Loperamide [Imodium] 2 mg PO TID PRN #9 capsule PRN Reason: Diarrhea Lidocaine Patch 5% [Lidoderm Patch] 1 patch TOP DAILY PRN #7 patch PRN Reason: Pain Diet: Soft (Eat a pured diet, and low fiber and low in milk products, for easy digestion. Advance your diet as you can tolerate it, using the suggestions you got from the dietitian at your meeting today.) Activity Restrictions: Activity as Tolerated Shower Restrictions: No Instruction Topics: Oncology Control Diarrhea Health Concerns: You were admitted with chemotherapy-induced colitis. The loose stool and bloody diarrhea are improving. You are tolerating your pured diet therefore you are ready for discharge. Please complete 2 more days of antibiotics and also take the probiotics that were prescribed. Several pills of Imodium for controlling diarrhea were also prescribed to use as needed. Stay well-hydrated, even as you advance your pured diet slowly. Please resume taking your Coumadin tablet at its usual dose tonight. The plan is to have the INR level climb up slowly into a good range, as your colitis slowly continues to get better too, over the next several days. No bridging with Lovenox is needed. Have INR testing done as per your routine. Take only a third of your usual dose of Metformin (500 g daily) while you are on a pured diet. Use your glucose checks to advance your Metformin to its usual amount or have that directed by your PCP. Resume taking your Lisinopril on Friday. This is an estimate of when your blood pressure will probably go up into higher ranges. Here you were not getting the Lsiniopril, since here your blood pressure was normal (which was a sign of dehydration) Resume all your other prehospital medications. Remember to take your Fluconazole tablets for thrush for approximately 10 more days. Plan of Treatment: As above. The new prescriptions were electronically sent to your pharmacy. Care Goals: Improvement in symptoms and stabilization are the goals. Assessment: The patient understands and is agreeable with the plan. Additional Instructions or Follow Up instructions: If you have new or worsening symptoms, call your PCP or Oncologist for advice, or come to the ER. No Smoking: If you smoke, Please STOP! Call for help. [facility] [Primary Care Provider] -
[2020-03-09] MEDS ORDERED: MAGNESIUM SULFATE 1 GM in SODIUM CHLORIDE 0.9% 50 ML IV ONE (11:44)
--- NOTE | 2020-03-09 11:51 | DISCHARGE SUMMARY ---
Discharge Summary Admit Date: 03/05/20 Discharge Date: 03/09/20 Discharging Provider: Dr Anisha Thornton Primary Care Provider: Dr Betty Pedraza (Teresa) Code Status: Attempt Resuscitation Condition at Discharge: Stable Discharge Disposition: 01 Home, Self Care - HPI History of Present Illness: From the admission H&P of Dr Jannette Nuñezu: Patient is a 59-year-old white female with current diagnosis of stage III breast cancer who sees Dr. Zabala (oncologist) at [place] [facility] and started chemotherapy 2 weeks ago. She saw her primary care physician on Friday and had routine labs done yesterday which showed an elevated white blood cell count. Consequently she was advised to go to the hospital for further evaluation. She reported poor appetite over the past week, nausea and 2 weeks of worsening diarrhea every hour. She denies chest pain, dyspnea. She reports abdominal pain which initially started on the right side but radiates centrally and downward. It seems to worsen when she is about to have a bowel movement. She denied blood in her stool. In the ED she was also found to have a systolic blood pressure of 95. Consequently she was presented for admission for further treatment. Her other past medical history includes Hypothyroidism, diabetes mellitus, hypertension, GERD and Factor V Leiden deficiency with history of DVT twice for which she is on Coumadin. The Coumadin is currently being resumed after Port placement, and is needing bridging with Lovenox. Her most recent INR was 2.3. 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 I discussed her CODE BLUE wishes with her and she wishes to be a Full Code. - HOSPITAL COURSE Hospital Course: (1) Sepsis She presented with hypotension and a presumed source of infection was colitis, which was seen on CT imaging. She received IV fluids and was started on IV antibiotics. The sepsis resolved with stable vital signs the next day. (2) Colitis She had 6-8 bowel movements of diarrheal stool with spasms and urgency. She was put on iv fluids, clear liquids and iv Flagyl and iv Cipro. After 1 day the bowel movements decreased but they became watery and red. The same management was continued. Her diet was advanced to pured plus clear liquids, avoiding high fiber and milk products, and on the day of discharge she had a brown semi- formed bowel movement and was tolerating her diet. She was discharged home to take 2 more days of Cipro orally, Florastor probiotic, and Imodium as needed. She was educated at length by the Dietitian on how to advance her diet as tolerated. (3) Hypokalemia due to excessive gastrointestinal loss of potassium Replaced, we followed her BMP daily. (4) Hypocalcemia Replaced (5) Hematochezia She had several BMs that were "liquid and red". Her symptoms had slightly improved. A General Surgery consult was requested who advised keeping on the same plan. She never developed a "surgical abdomen". Her hemoglobin was checked daily and was stable at 12.9>> 11.7. (6) Elevated INR (international normalized ratio) due to prior anticoagulant medication ingestion At presentation, the INR was 5.9. Later that day, she had blood in her diarrhea and so her Coumadin was discontinued, plus she received vitamin K 5 mg x 1. The INR dropped daily >> 1.8>> 1.4>> 1.3. The Coumadin remained on hold because of continued blood in the stool and we ordered SCDs for DVT prophylaxis therefore. At discharge, she was advised to resume her Coumadin at its usual dose, to allow the INR to come up slowly into the therapeutic range, hopefully paralleling those several more days needed for treatment of her colitis. She needs close monitoring of her INR. (7) Candidiasis of mouth We continued with her oral Fluconazole that had been prescribed 2 days before this admission, and had been ordered to take for 14 days. EKG was stable regarding QTc. (8) Breast cancer As per history; her chemotherapy was first given 2 weeks ago and caused this colitis. He was advised to discuss this colitis complication with her Oncologist in order to determine further chemotherapy treatment. (9) Factor V Leiden She has had 2 DVTs in her life and is on lifelong Coumadin. She understood that Coumadin was on hold here because of blood in the stool. (10) Diabetes mellitus She was advanced to pureed, carb-controlled diet with sliding scale insulin coverage. Metformin was on hold in case of RAEGAN. At discharge, she was advised to slowly resume her Metformin: take only 500 mg daily while on a pureed diet, and then to use her fingerstick glucose checks to increase the dose slowly back to 1500 mg daily. (11) Personal history of DVT (deep vein thrombosis) As above in #8 (12) Hypothyroidism Her home thyroid dose was ordered here, however her TSH was very elevated at 43. Perhaps it had been affected by the chemo. The thyroid dose needs adjustment by her PCP or Oncologist. (13) Hyperlipidemia Her statin was on hold in order to decrease the amount of pills needed to ingest, during these symptoms. (14) GERD (gastroesophageal reflux disease) She was getting Protonix here for ulcer prophylaxis instead of her home omep razole. Her usual Omeprazole may be resumed after discharge. (14) Elevated lipase The Lipase of 86 was felt to be a phase reactant, since her imaging of the pancreas was normal (16) Deaf Writing and sign language were used to communicate, occasionally with her rib bender, via computer tablet. (17) Legally blind Her partner at bedside, reported the diagnosis was optic nerve hypoplasia, that she had since but it was diagnosed at age 51. - ALLERGIES Allergies/Adverse Reactions: Allergies Allergy/AdvReac Type Severity Reaction Status Date / Time Opioids - Morphine Analogues AdvReac Intermediate Emesis Verified 03/07/20 15:14 Opioids-Meperidine and AdvReac Intermediate Emesis Verified 03/07/20 15:14 Related Opioids-Methadone and Related AdvReac Intermediate Emesis Verified 03/07/20 15:14 - MEDICATIONS Home Medications: Ambulatory Orders Medication Instructions Recorded Confirmed Atorvastatin [Lipitor] 10 mg PO QPM 12/02/15 03/06/20 Levothyroxine [Synthroid] 125 mcg PO QDAC 12/02/15 03/06/20 Omeprazole [PriLOSEC] 20 mg PO DAILY 12/02/15 03/06/20 lisinopriL [Lisinopril] 10 mg PO DAILY 12/02/15 03/06/20 metFORMIN [Glucophage] 1,500 mg PO DAILY 12/02/15 03/06/20 Warfarin [Coumadin] 5 mg PO DAILY 03/06/20 03/06/20 Ciprofloxacin HCl [Cipro] 500 mg PO BID #4 tablet 03/09/20 Fluconazole [Diflucan] 100 mg PO DAILY tablet 03/09/20 Lidocaine Patch 5% [Lidoderm Patch] 1 patch TOP DAILY PRN #7 patch 03/09/20 Loperamide [Imodium] 2 mg PO TID PRN #9 capsule 03/09/20 Saccharomyces Boulardii [Florastor] 250 mg PO BIDWM #4 capsule 03/09/20 - PHYSICAL EXAM AT DISCHARGE General Appearance: positive: No acute distress, Alert Eyes Bilateral: positive: Normal inspection, EOMI ENT: positive: Other (Deaf bilaterally) Neck: positive: Nml inspection, No JVD Respiratory: positive: No respiratory distress Cardiovascular: positive: Regular rate & rhythm, No murmur Abdomen: positive: Non-tender, Nml bowel sounds Skin: positive: Warm, Dry Extremities: positive: Non-tender, No pedal edema Neurologic/Psychiatric: positive: Oriented x3, Motor nml, Other (Deafness and decreased vision) - LABS Result Diagrams: 03/09/20 05:25 03/09/20 05:25 - DIAGNOSTIC IMAGING Diagnostic Imaging Results: Final report reviewed - FOLLOW UP Follow Up: See PCP and/or Oncologist in the next 5 to 10 days. - TIME SPENT Time Spent in Discharge (Minutes): 60
[2020-03-09] MEDS ORDERED: MAGNESIUM SULFATE 2 GRAM 2 GM/50 ML BAG IV SCH (12:00)
[2020-03-09 15:44] VITALS: BP 124/57
== END 2020-03-09 16:07 | disposition home or self-care (01) | DRG 872 ==
LOC: ED 10:30 → MS3 16:56
PROVIDERS: ADMIT Internal Medicine; ATTEND Internal Medicine
DX: A41.9 Sepsis, unspecified organism (principal); K52.1 Toxic gastroenteritis and colitis; K52.9 Noninfective gastroenteritis and colitis, unspecified; B37.0 Candidal stomatitis; K92.1 Melena; D68.32 Hemorrhagic disorder due to extrinsic circulating anticoagulants; D68.51 Activated protein C resistance; E86.0 Dehydration; T45.1X5A Adverse effect of antineoplastic and immunosuppressive drugs, initial encounter; T45.515A Adverse effect of anticoagulants, initial encounter; E87.6 Hypokalemia; E83.51 Hypocalcemia; E78.5 Hyperlipidemia, unspecified; C50.919 Malignant neoplasm of unspecified site of unspecified female breast; R53.2 Functional quadriplegia; E11.9 Type 2 diabetes mellitus without complications; I10 Essential (primary) hypertension; K21.9 Gastro-esophageal reflux disease without esophagitis; E03.9 Hypothyroidism, unspecified; H54.8 Legal blindness, as defined in USA; Z86.718 Personal history of other venous thrombosis and embolism; Z98.1 Arthrodesis status; H91.90 Unspecified hearing loss, unspecified ear; Z79.01 Long term (current) use of anticoagulants; Z79.82 Long term (current) use of aspirin; Z79.84 Long term (current) use of oral hypoglycemic drugs; Z87.891 Personal history of nicotine dependence; Z79.899 Other long term (current) drug therapy
CPT/HCPCS: 36415; 74177; 80048; 80053; 81003; 81599; 83036; 83605; 83690; 83735; 84132; 85025; 85610; 87040; 87493; 93005; 99284; 99285; A9270; Q9967; 81001; 84443; 87045; 87046; 87086

== ENCOUNTER 2020-04-14 17:09 | Emergency (ER) | payer MEDICARE ==
[2020-04-14 17:22] VITALS: BP 120/64
[2020-04-14] MEDS ORDERED: SODIUM CHLORIDE 0.9% 1,000 ML IV STA (17:29)
== END 2020-04-14 17:40 | disposition left against medical advice (07) ==
LOC: ED 17:09
DX: Z53.21 Procedure and treatment not carried out due to patient leaving prior to being seen by health care provider (principal)
CPT/HCPCS: 80053; 83735; 84100; 85025